=== PATIENT | female | born 1950 | race Caucasian/White ===

== ENCOUNTER 2023-08-06 07:00 | Outpatient (NON) | payer MEDICARE, OTHER, SELFPAY | END 2023-08-06 07:01 | disposition home or self-care (01) | LOC: ANHLAB 08-07 08:16 | PROVIDERS: PCP Internal Medicine; Visit Provider Internal Medicine Gastroenterology | DX: Z86.010 Personal history of colon polyps (principal) | CPT/HCPCS: 88305 ==

== ENCOUNTER 2023-08-06 08:21 | Day surgery (SDC) | payer MEDICARE, OTHER, SELFPAY ==
[2023-07-15 09:13] VITALS: BMI 32.6
[2023-07-20 14:16] VITALS: BMI 32.5
--- NOTE | 2023-08-06 09:17 | WPDANESEPPF ---
Anes - Initial Pre Proc Eval Procedure: Operation Date: 08/06/23 10:30 Proposed Procedures p Esophagogastroduodenoscopy - Hugh Hughes MD s Diagnostic Colonoscopy - Hugh Hughes MD Date/Time: 08/06/23 09:17 Surgeon: Hugh Hughes MD Pre Op Diagnosis: History of Colon Polyps, Nausea Patient Data Age: 72 Gender: F Height: 1.47 m Weight: 70.5 kg Allergies Allergy/AdvReac Type Severity Reaction Status Date / Time No Known Allergies Allergy Verified 08/06/23 09:17 Home Medications Medication Instructions Recorded Confirmed Type ascorbic acid (vitamin C) 500 mg 500 mg PO DAILY 07/20/23 08/06/23 History tablet calcium 600 mg capsule 600 mg PO DAILY 07/20/23 08/06/23 History cetirizine 10 mg tablet (Zyrtec) 10 mg PO DAILY 07/20/23 08/06/23 History cholecalciferol (vitamin D3) 50 50 mcg PO DAILY 07/20/23 08/06/23 History mcg (2,000 unit) tablet citalopram 20 mg tablet 20 mg PO DAILY 07/20/23 08/06/23 History lisinopril 10 mg tablet 10 mg PO DAILY 07/20/23 08/06/23 History montelukast 10 mg tablet 10 mg PO DAILY 07/20/23 08/06/23 History multivitamin with minerals-folic 1 tablet PO DAILY 07/20/23 08/06/23 History acid 0.4 mg tablet rosuvastatin 20 mg tablet 20 mg PO DAILY 07/20/23 08/06/23 History turmeric 400 mg capsule 400 mg PO DAILY 07/20/23 08/06/23 History omeprazole 20 mg capsule,delayed 20 mg PO DAILY 07/21/23 08/06/23 History release Patient hx anesthesia problems: none Family hx anesthesia problems: none Results Review: All pre-operative results and documents have been reviewed as part of the pre-operative evaluation. [facility] Social History Social History Smoking status: Never smoker Alcohol intake: current Alcohol use details: rarely Substance use: never Substance use type: does not use Living arrangements: with family Spiritual care concerns: No Anes - Eval Final PreProcedure Day of Procedure 08/06/23 09:17 Patient weight: obese Heart: regular rate and rhythm Lungs: clear to auscultation Airway: Mallampati scale class II Neurological: alert and oriented Last oral intake: >/= 8 hours ASA classification: III Emergent: no Anesthetic plan: proceed Anesthesia type and monitoring: general GIVS and standard monitoring Results Review: All pre-operative results and documents have been reviewed as part of the pre-operative evaluation. Informed Consent: The patient's anesthetic plan and its attendant risks and benefits were discussed with the patient/family/POA. Questions were solicited and answers provided to the satisfaction of the patient/family/POA.
[2023-08-06 09:31] VITALS: BP 114/78; PULSE 88; RESP 16; TEMP 36.9; O2SAT 97; BMI 33.0
[2023-08-06] MEDS: LACTATED RINGERS 1,000 ML 150 ML IV CONT (09:42)
--- NOTE | 2023-08-06 10:11 | PM.HPGS ---
History of Present Illness History of Present Illness Consent: Risks, benefits, and alternatives have been discussed and questions answered. Patient agrees to proceed with procedure. Chief complaint: History of Colon Polyps, Nausea Narrative: Noel Barr is a 72 year old female referred for both colonoscopy and EGD. Reports a prior history of colon polyps. Her father has had colon polyps. Her sister had colon cancer, her aunt had colon cancer. Patient reports that her current weight appetite and bowel movements are normal. She read returns today for screening colonoscopy. 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 She received chemotherapy and did not have surgery. Patient recently has had some vague nausea and left upper quadrant discomfort. She is on treatment currently with acid suppression medications. Currently omeprazole 20mg p.o. daily. Because of her prior history an EGD for follow-up has been requested. There is no known family history of gastric cancer. Review of Systems Review of Systems: All systems reviewed & are unremarkable except as noted in HPI and below PMFSH Social History Social History Smoking status: Never smoker Alcohol intake: current Alcohol use details: rarely Substance use: never Substance use type: does not use Living arrangements: with family Spiritual care concerns: No Meds Home Medications and Allergies Home Medications Medication Instructions Recorded Confirmed Type ascorbic acid (vitamin C) 500 mg 500 mg PO DAILY 07/20/23 08/06/23 History tablet calcium 600 mg capsule 600 mg PO DAILY 07/20/23 08/06/23 History cetirizine 10 mg tablet (Zyrtec) 10 mg PO DAILY 07/20/23 08/06/23 History cholecalciferol (vitamin D3) 50 50 mcg PO DAILY 07/20/23 08/06/23 History mcg (2,000 unit) tablet citalopram 20 mg tablet 20 mg PO DAILY 07/20/23 08/06/23 History lisinopril 10 mg tablet 10 mg PO DAILY 07/20/23 08/06/23 History montelukast 10 mg tablet 10 mg PO DAILY 07/20/23 08/06/23 History multivitamin with minerals-folic 1 tablet PO DAILY 07/20/23 08/06/23 History acid 0.4 mg tablet rosuvastatin 20 mg tablet 20 mg PO DAILY 07/20/23 08/06/23 History turmeric 400 mg capsule 400 mg PO DAILY 07/20/23 08/06/23 History omeprazole 20 mg capsule,delayed 20 mg PO DAILY 07/21/23 08/06/23 History release Allergies Allergy/AdvReac Type Severity Reaction Status Date / Time No Known Allergies Allergy Verified 08/06/23 09:17 Vital Signs Vital Signs - 24 hr 08/06/23 09:31 Temperature 98.5 F Pulse Rate 88 Respiratory Rate 16 Blood Pressure 114/78 Pulse Oximetry 97 Oxygen Delivery Room Air Exam Narrative: Physical exam reveals patient to be alert. Vital signs stable. HEENT exam is unremarkable. Patient is anicteric. Lungs are clear to auscultation and to percussion. Heart is without murmur or extra sounds. Abdomen bowel sounds are present soft nontender with no organomegaly. Digital external rectal exam is normal. Assessment and Plan Assessment and plan (1) History of colon polyps: Code(s): Z86.010 - Personal history of colonic polyps Status: Acute Assessment and Plan: Patient has a distant history of colon polyps along with family history of colon cancer. Plan for surveillance colonoscopy at least every 5 years. (2) Family hx of colon cancer: Code(s): Z80.0 - Family history of malignant neoplasm of digestive organs Status: Acute Assessment and Plan: Patient's sister has had colon cancer. Patient's father and herself have had colon polyps. Plan for surveillance colonoscopy at least every 5 years. (3) Nausea: Code(s): R11.0 - Nausea Status: Acute Assessment and Plan: Patient with some nausea poorly responsive to omeprazole plan for EGD to assess more thoroughly. (4) History of lymphoma: Cod
[2023-08-06 11:25] VITALS: BP 110/78; PULSE 78; RESP 14; O2SAT 99
--- NOTE | 2023-08-06 11:35 | WPDANESPN ---
Anes - Prog Note Post-Op Date/Time: 08/06/23 11:35 Cardiovascular status: normal Respiratory status: normal Airway patency: baseline Mental status: baseline Post-Op hydration status: normal Vital Signs: Last Vital Signs Temp 36.9 C 08/06/23 09:31 Pulse 78 08/06/23 11:25 Resp 14 08/06/23 11:25 BP 110/78 08/06/23 11:25 Pulse Ox 99 08/06/23 11:25 O2 Del Method Room Air 08/06/23 11:25 Pain Score (VAS): 0 I/O: Intake & Output 08/05/23 08/06/23 08/06/23 23:59 07:59 15:59 Intake Total 700 Balance 700 Patient Feedback: Patient satisfied with anesthetic care.
[2023-08-06 11:46] VITALS: BP 127/69; PULSE 66; RESP 16; O2SAT 99
== END 2023-08-06 11:50 | disposition home or self-care (01) ==
PROVIDERS: PCP Internal Medicine; Visit Provider Internal Medicine Gastroenterology
PROC: 0DJ08ZZ Inspection of Upper Intestinal Tract, Via Natural or Artificial Opening Endoscopic (ICD-10-PCS; CPT 43235; principal; 2023-08-06 10:30)
PROC: 0DJD8ZZ Inspection of Lower Intestinal Tract, Via Natural or Artificial Opening Endoscopic (ICD-10-PCS; CPT 45378; 2023-08-06 10:30)
DX: Z86.010 Personal history of colon polyps (principal); Z80.0 Family history of malignant neoplasm of digestive organs; R11.0 Nausea; K57.30 Diverticulosis of large intestine without perforation or abscess without bleeding; K64.8 Other hemorrhoids; K31.7 Polyp of stomach and duodenum
CPT/HCPCS: G0105; 43251; 43239

== ENCOUNTER 2023-09-10 08:02 | Outpatient (CLI) | payer MEDICARE, OTHER, SELFPAY ==
--- NOTE | ~2023-09-10 | CT_ITS ---
Pre and postcontrast Head CT History: Dizziness Technique: Axial imaging of the brain was performed prior to and following intravenous administratio n of 100 cc of Omnipaque 350 contrast material.. Dose reduction technique was used on this scan by ut ilizing automated exposure control and iterative reconstruction technique. The dose-length product (D LP) was 1210.67 mGy-cm. Findings: There is no evidence of intracranial hemorrhage, mass lesion, or acute infarct. Mild hypod ense areas are present in the periventricular white matter, compatible mild chronic microvascular isc hemic changes.. The ventricles and subarachnoid spaces are normal in size. The calvarium appears no rmal. The visualized paranasal sinuses and mastoid air cells are clear. No abnormal postcontrast enhancement. Impression: Mild chronic microvascular ischemic changes, otherwise unremarkable exam. Reviewed, dictated and finalized at [facility]. Impression: Mild chronic microvascular ischemic changes, otherwise unremarkable exam.
[2023-09-10 08:23] LABS: Estimated Glomerular Filt Rate > 60
== END 2023-09-10 08:03 | disposition home or self-care (01) ==
PROVIDERS: PCP Internal Medicine; Visit Provider Internal Medicine
DX: I67.82 Cerebral ischemia (principal)
CPT/HCPCS: 70470; Q9967

== ENCOUNTER 2023-09-23 13:22 | Outpatient (CLI) | payer MEDICARE, OTHER, SELFPAY ==
--- NOTE | ~2023-09-23 | US_ITS ---
EXAMINATION: US carotid duplex BI DATE: 09/23/2023 14:22 INDICATION: Dizziness. TECHNIQUE: Grayscale, color Doppler, and pulsed Doppler images of the cervical carotid arteries were obtained. The degree of vessel stenosis is placed in one of the following categories: normal, <50%, 5 0-69%, >=70% but less than near-occlusion, near-occlusion, or total occlusion. Note that percent sten osis relative to normal distal artery lumen diameter is indirectly measured from velocity measurement s as described by Abram, et al. Radiology 2003; [id number]. COMPARISON: None. FINDINGS: In the left thyroid lobe, there is a 1.3 cm mixed cystic and solid, isoechoic, wider than t all nodule with ill defined margin without echogenic foci (TI-RADS TR2), likely not clinically signif icant. RIGHT: The right common carotid artery (CCA) peak systolic velocity (PSV) is 70 cm/s. The right internal car otid artery (ICA) PSV is 102 cm/s. The right ICA end-diastolic velocity (EDV) is 47 cm/s. The right I CA/CCA PSV ratio is 1.5. Grayscale and color Doppler images yield an estimate of <50% diameter reduct ion from plaque in the ICA. There is antegrade flow in the right vertebral artery. LEFT: The left CCA PSV is 63 cm/s. The left ICA PSV is 145 cm/s. The left ICA EDV is 52 cm/s. The left ICA/ CCA PSV ratio is 2.3. Grayscale and color Doppler images yield an estimate of <50% diameter reduction from plaque in the ICA. There is antegrade flow in the left vertebral artery. IMPRESSION: 1. <50% stenosis in the right internal carotid artery. 2. <50% stenosis in the left internal carotid artery. Reviewed, dictated and finalized at location [facility].
== END 2023-09-23 13:23 | disposition home or self-care (01) ==
LOC: ANHIMG 13:23
PROVIDERS: PCP Internal Medicine; Visit Provider Internal Medicine
DX: I65.23 Occlusion and stenosis of bilateral carotid arteries (principal); R42 Dizziness and giddiness
CPT/HCPCS: 93880

== ENCOUNTER 2024-03-07 08:49 | Outpatient (CLI) | payer MEDICARE, OTHER, SELFPAY ==
[2024-03-07 09:17] LABS: Basophils Percent Auto 0.6 % (0.2-1.2); Eosinophils Absolute Auto 0.2 K/mm3 (0-0.3); Eosinophils Percent Auto 3.3 % (0-4.4); Hematocrit 40.4 % (37.0-47.0); Hemoglobin 13.3 g/dL (12.0-15.0); Immature Granulocyte Absolute 0.02 K/mm3 (0.00-0.031); Immature Granulocyte Percent A 0.3 % (0-0.5); Lymphocytes Absolute Auto 1.74 K/mm3 (0.9-3.2); Lymphocytes Percent Auto 25.9 % (18.3-44.2); Mean Corpuscular HGB Conc 32.9 g/dl (32-36); Mean Corpuscular Hemoglobin 29.3 pg (26-34); Mean Platelet Volume 8.9 fl (7.4-10.4); Monocytes Absolute Auto 0.6 K/mm3 (0.1-0.6); Monocytes Percent Auto 9.2 % (2.6-8.5); Neutrophils Absolute Auto 4.1 K/mm3 (1.3-6.7); Neutrophils Percent Auto 60.7 % (45.5-73.1); Platelet Count Result 237 k/mm3 (150-375); Red Blood Count 4.54 M/mm3 (4.2-5.4); Red Cell Distribution Width 14.5 % (11.5-14.5); White Blood Count 6.7 K/mm3 (4.5-10.0)
[2024-03-07 12:05] LABS: Alanine Aminotransferase 17 U/L (6-35); Albumin Level 4.1 g/dL (3.5-5.1); Alkaline Phosphatase 74 U/L (38-126); Anion Gap 7 mmol/L (4-12); Aspartate Amino Transferase 59 U/L (14-36); Bilirubin,Total 0.3 mg/dL (0.2-1.3); Blood Urea Nitrogen 13 mg/dL (7-17); Calcium 9.8 mg/dL (8.4-10.2); Carbon Dioxide 28 mmol/L (22-30); Chloride 104 mmol/L (98-107); Cholesterol 202 mg/dL (0-200); Estimated Glomerular Filt Rate > 60; Glucose 102 mg/dL (65-110); HDL Direct 66 mg/dL; Potassium 4.2 mmol/L (3.4-5.0); Sodium 139 mmol/L (137-145); Triglycerides 167 mg/dL (<150)
[2024-03-07 12:16] LABS: LDL Cholesterol Direct 105 mg/dL
[2024-03-07 13:12] LABS: Vitamin D 25 Hydroxy 72.9 ng/mL
== END 2024-03-07 08:50 | disposition home or self-care (01) ==
PROVIDERS: PCP Internal Medicine; Visit Provider Internal Medicine
DX: E55.9 Vitamin D deficiency, unspecified (principal); I10 Essential (primary) hypertension
CPT/HCPCS: 36415; 80053; 80061; 82306; 85025

== ENCOUNTER 2024-09-06 09:46 | Outpatient (CLI) | payer MEDICARE, OTHER, SELFPAY ==
[2024-09-06 10:16] LABS: Alanine Aminotransferase 20 U/L (6-35); Albumin Level 4.3 g/dL (3.5-5.1); Alkaline Phosphatase 70 U/L (38-126); Anion Gap 6 mmol/L (4-12); Aspartate Amino Transferase 68 U/L (14-36); Basophils Absolute Auto 0.1 K/mm3 (0.0-0.1); Bilirubin,Total 0.4 mg/dL (0.2-1.3); Blood Urea Nitrogen 15 mg/dL (7-17); Calcium 9.4 mg/dL (8.4-10.2); Carbon Dioxide 29 mmol/L (22-30); Chloride 106 mmol/L (98-107); Cholesterol 203 mg/dL (0-200); Eosinophils Absolute Auto 0.2 K/mm3 (0-0.3); Eosinophils Percent Auto 2.8 % (0-4.4); Estimated Glomerular Filt Rate > 60; Glucose 100 mg/dL (65-110); HDL Direct 63 mg/dL; Hematocrit 42.3 % (37.0-47.0); Hemoglobin 13.7 g/dL (12.0-15.0); Immature Granulocyte Absolute 0.01 K/mm3 (0.00-0.031); Immature Granulocyte Percent A 0.2 % (0-0.5); Lymphocytes Absolute Auto 1.84 K/mm3 (0.9-3.2); Lymphocytes Percent Auto 29.8 % (18.3-44.2); Mean Corpuscular HGB Conc 32.4 g/dl (32-36); Mean Corpuscular Volume 89.6 fl (80-100); Mean Platelet Volume 9.2 fl (7.4-10.4); Monocytes Absolute Auto 0.6 K/mm3 (0.1-0.6); Monocytes Percent Auto 8.9 % (2.6-8.5); Neutrophils Absolute Auto 3.6 K/mm3 (1.3-6.7); Neutrophils Percent Auto 57.3 % (45.5-73.1); Platelet Count Result 274 k/mm3 (150-375); Potassium 4.4 mmol/L (3.4-5.0); Red Blood Count 4.72 M/mm3 (4.2-5.4); Red Cell Distribution Width 14.2 % (11.5-14.5); Sodium 141 mmol/L (137-145); Triglycerides 132 mg/dL (<150); White Blood Count 6.2 K/mm3 (4.5-10.0)
[2024-09-06 10:27] LABS: LDL Cholesterol Direct 107 mg/dL
== END 2024-09-06 09:47 | disposition home or self-care (01) ==
LOC: ANHLAB 09:47
PROVIDERS: PCP Internal Medicine; Visit Provider Internal Medicine
DX: I10 Essential (primary) hypertension (principal)
CPT/HCPCS: 36415; 80053; 80061; 85025

== ENCOUNTER 2024-10-19 11:37 | Outpatient (CLI) | payer MEDICARE, OTHER, SELFPAY ==
--- NOTE | ~2024-10-19 | CT_ITS ---
EXAMINATION: CTA chest PE protocol DATE: 10/19/2024 12:42 CDT INDICATION: Shortness of breath TECHNIQUE: Computed tomographic angiography (CTA) of the chest was performed with 100 mL Omnipaque-35 0 intravenous contrast. The dose-length product was 404.87 mGy-cm. Maximum intensity projection 3D-re constructions of the aorta and other arteries were constructed by the technologist on a separate work station. COMPARISON: None. FINDINGS/OBSERVATIONS: PULMONARY ARTERIES: No filling defect is identified within the main or proximal pulmonary artery. The main pulmonary artery is not enlarged. THORACIC AORTA: No aneurysmal dilatation or dissection is present. The great vessels are intact LUNGS: Trace bibasilar atelectasis. Cylindrical bronchiectasis is also noted. The remainder of the lungs are clear. MEDIASTINUM: No morphologically suspicious or pathologically enlarged lymph nodes are identified with in the mediastinum or bilateral axilla. BONES OF THE CHEST: No acute fracture. Age-appropriate degenerative disease. No lytic or blastic lesions. HEART: The heart is within upper limits of normal for size, without pericardial effusion. IMPRESSION: No pulmonary embolus. No thoracic aortic dissection. Trace bibasilar atelectasis with cylindrical bronchiectasis. Reviewed, dictated and finalized at location A.
--- OUTSIDE RECORDS SUMMARY | 2024-10-19 11:44 | XMS_ITS | Data Portability ---
Author Organization [facility] Address [address] [place] [address] Care Team Providers Care Angiography Technologist Name Role Phone DANIA ROSA Primary Care Provider [phone] Assessment Encounter Date Assessment Date Assessment LastModified by Organization Details LastModified Time 11/03/2023 11/03/2023 we will continue current therapy. [email or web address] Not available 11/08/2023 12:59:16 12/07/2023 12/07/2023 wellness screenings in checklist discussed and screenings and immunizations set up where patient agreeable and appropriate for the patient [email or web address] Not available 12/12/2023 13:46:57 02/29/2024 02/29/2024 we will get a flu shot today blood work for biochemical management of disease processes and medications on down her mammogram colon cancer screening and immunizations from her old records. Staff will do that blood work ordered medicines reviewed with patient diagnosis and assessment and plans reviewed with the patient follow up with me in 4 months Not available 03/05/2024 15:43:47 08/08/2024 08/08/2024 Continue current therapy seems to be doing well a CBC CMP and a lipid see me in 6 months [email or web address] Not available 08/21/2024 21:14:56 Plan of Treatment Reminders Order Date Submit Date Provider Last Modified By Organization Details Last Modified Time Details Appointments ANY 15 2024 10:45A Kyle Rosa MD Not available Not available Not available ANY 15 2024 01:00P Kyle Rosa MD Not available Not available Not available Lab CBC w/ auto diff 2024 025 JOYCE [facility], [address], [place], [address], 09/06/2024 13:25:06 CMP, serum or plasma 2024 025 [facility], [address], [place], [address], 09/06/2024 13:25:05 lipid panel, serum 2024 025 [facility], [address], [place], [address], 09/06/2024 13:25:06 lipid panel, serum 2023 024 [facility], [address], [place], [address], 03/07/2024 15:49:26 CMP, serum or plasma 2023 024 [facility], [address], [place], [address], 03/07/2024 15:49:26 CBC w/ auto diff 2023 024 [facility], [address], [place], [address], 03/07/2024 12:40:19 vitamin D, 25-hydro xy, total, serum 2023 024 [facility], [address], [place], [address], 03/07/2024 15:49:26 Referral None recorded . Procedures None recorded . Surgeries None recorded . Imaging None recorded . Medication Orders None recorded . Patient TargetsNo targets recorded. Patient Instructions Encounter Date Encounter Id Patient Instructions Last Modified By Organization Details Last Modified Time 11/03/2023 [id number] A healthy lifestyle: care instructions [email or web address] Not available 11/08/2023 13:00:24 12/07/2023 [id number] preventing falls : care instructions Not available 12/07/2023 17:40:58 Medicare [place] Preventive Checklist [email or web address] Not available 12/07/2023 17:40:58 eating healthy foods: care instructions Not available 12/07/2023 17:40:58 08/08/2024 [id number] A healthy lifestyle: care instructions [email or web address] Not available 08/08/2024 17:51:29 Reason for Referral None Reported. Results Created Date Observation Date Name Description Value Unit Range Abnormal Flag Note LastModifiedBy Organization Detail LastModifiedTime 12/04/19 24 03/11/2023 MAMMO , scree antonette, tomos ynthe sis, bilat eral No observ ation record ed. Not Available 2023 11:17:19 12/07/19 24 08/06/2023 upper endos copy proce dure (EGD) (PROC ) No observ ation record ed. [facility] (Medical Records) [address] [place] [address], [address], 12/08/2023 12:30:36 12/08/19 colon oscop y proce dure (PROC ) No observ ation record ed. [facility] (Medical Records) [address] [place] [address], [address], 12/08/2023 12:30:36 12/09/19 24 12/03/2021 bone densi ty No observ ation record ed. [facility] [address] [place], [address], 12/16/2023 12:59:50 12/24/19 24 12/23/2023 CT, coron hali calci um score No observ ation record ed. [facility] [address], [place], [address], 12/30/2023 13:51:32 04/01/20 24 04/01/2024 MAMMO , scree antonette, digit al, bilat eral No observ ation record ed. [facility] [address], [place], [address], 04/06/2024 09:58:28 Result Notes None recorded. Problems Name Problem SNOMED Code Status Onset Date Resolution Date Notes Provider Name and Address Organization Details Recorded Time Essential hypertension 07710729 Active 2023 Major Solares MA null, [place] - [facility] 4 16:47:15 Nausea 980653693 Active 2023 Major Solares [place], [place] [facility] 4 16:47:26 History of polyp of colon 007185873 Active 2023 Major Solares [place], [place] [facility] 4 16:48:26 Hyperlipidemia 96089218 Active 2023 Dania Rosa MD Attn: [facility],[address] [place], [address], [place] - [facility] 4 21:12:08 Chronic rhinitis 55563857 Active 2023 Dania Rosa MD Attn: [facility],[address] [place], [address], [place] [facility] 4 21:12:09 Vitamin D below reference range 931392669 Active 2023 Dania Rosa MD Attn: [facility],[address] [place], [address], [place] [facility] 4 21:12:10 Anxiety 78479301 Active 2023 Dania Rosa MD Attn: [facility] [facility], [place], [address], [place] [facility] 4 21:12:11 Dizziness 254415498 Active 2023 Major Solares [place] null, [place] [facility] 4 12:27:05 Gastroesophage al reflux disease without esophagitis 429404502 Active 2023 Dania Rosa MD Attn: [facility],[address] [facility] [place], [address], [facility] 4 15:43:07 Dyspnea 813055142 Active 2024 DAR Ding, [facility] 5 12:08:06 Problem Notes None recorded. Procedures Surgical History Date Name Laterality Status Provider Name and Address Organization Details Recorded Time Carpal tunnel surgery completed [facility] 12/07/2023 16:39:18 arthroplasty of joint of the thumb completed [facility] 12/07/2023 16:39:40 procedure on pancreas completed [facility] 12/07/2023 16:39:56 Imaging Results None recorded. Procedure Notes None recorded. Medical Equipment None Reported. Allergies No known drug allergies Medications Name Sig Start Date Stop Date Status Note LastModified by Organization Details LastModified Time citalopram 40 mg tablet Take 0.5 tablet(s) every day by oral route. 01/26 completed pt req 20mg tabs Not Available Not Available Not Available cetirizine 10 mg tablet TAKE 1 TABLET BY MOUTH EVERY DAY 2024 active Not Available Not Available Not Avai lable prednisone 20 mg tablet Take 2 tablets every day by oral route for 5 days. 2024 active Not Available Not Available Not Avai lable citalopram 20 mg tablet TAKE 1 TABLET BY MOUTH EVERY DAY 2024 active Not Available Not Available Not Avai lable lisinopril 10 mg tablet TAKE 1 TABLET BY MOUTH EVERY DAY 2024 active Not Available Not Available Not Avai lable Valtrex 1 gram tablet Take 1 tablet 3 times a day by oral route for 7 days. 11/02 completed Not Available Not Available Not Available omeprazole 20 mg capsule,del ayed release TAKE 1 CAPSULE BY MOUTH EVERY DAY 2024 active Not Available Not Available Not Avai lable montelukast 10 mg tablet TAKE 1 TABLET BY MOUTH EVERY DAY 2024 active Not Available Not Available Not Avai lable ergocalcife rol (vitamin D2) 1,250 mcg (50,000 unit) capsule TAKE 1 CAPSULE BY MOUTH ONE TIME PER WEEK 10/19 completed Not Available Not Available Not Available albuterol sulfate HFA 90 mcg/actuati on aerosol inhaler Inhale 2 puffs every 4 hours by inhalatio n route. 2024 active Not Available Not Available Not Avai lable doxycycline hyclate 100 mg tablet Take 1 tablet twice a day by oral route for 10 days. 2024 active Not Available Not Available Not Avai lable rosuvastati n 20 mg tablet TAKE 1 TABLET BY MOUTH EVERY DAY 2024 active Not Available Not Available Not Avai lable Prilosec OTC 20 mg tablet,oscar yed release take 1 tablet by mouth daily 08/08 completed Not Available Not Available Not Available Vitals Date Recorded Body height Body mass index (BMI) Body weight Heart rate Oxygen saturation Oxygen saturation in Arterial blood by Pulse oximetry Systolic blood pressure Diastolic blood pressure Provider Name and Address Organization Details Last Updated DateTime 5 149.86 cm 31.2 kg/m2 02745.7 4 g 79 /min 97 % 97 % 116 mm[Hg] 82 mm[Hg] [facility] 5 14:13:19 Date Recorded Body height Body mass index (BMI) Body weight Heart rate Oxygen saturation Oxygen saturation in Arterial blood by Pulse oximetry Systolic blood pressure Diastolic blood pressure Provider Name and Address Organization Details Last Updated DateTime 5 149.86 cm 32.4 kg/m2 28598.5 8 g 95 /min 93 % 93 % 120 mm[Hg] 82 mm[Hg] [facility] 5 11:39:45 Date Recorded Body height Body mass index (BMI) Body weight Heart rate Oxygen saturation Oxygen saturation in Arterial blood by Pulse oximetry Systolic blood pressure Diastolic blood pressure Provider Name and Address Organization Details Last Updated DateTime 4 149.86 cm 31.7 kg/m2 06443 g 94 /min 96 % 96 % 116 mm[Hg] 78 mm[Hg] Kendra Javed MA [place] - [facility] 4 15:20:20 Date Recorded Body height Body mass index (BMI) Body weight Heart rate Oxygen saturation Oxygen saturation in Arterial blood by Pulse oximetry Systolic blood pressure Diastolic blood pressure Provider Name and Address Organization Details Last Updated DateTime 4 149.86 cm 31.9 kg/m2 41166.5 9 g 87 /min 94 % 94 % 128 mm[Hg] 68 mm[Hg] Hui Anita [facility] 4 15:10:03 Date Recorded Body height Body mass index (BMI) Body weight Heart rate Oxygen saturation Oxygen saturation in Arterial blood by Pulse oximetry Systolic blood pressure Diastolic blood pressure Provider Name and Address Organization Details Last Updated DateTime 4 149.86 cm 30.3 kg/m2 58575.2 1 g 83 /min 95 % 95 % 122 mm[Hg] 66 mm[Hg] Martha Duque MA [facility] 4 15:03:15 Social History Question Answer Notes LastModified by Organizat ion Details LastModified Time Tobacco Smoking Status Former Smoker quit when she was 27 years old Kendra Javed MA Merged with [facility] 11/03/2023 15:14:53 Do You Have An Advance Directive? Yes Information not available 11/03/2023 Are You Blind Or Do You Have Difficulty Seeing? No Information not available 11/03/2023 What Is Your Level Of Caffeine Consumption? Moderate Information not available 11/03/2023 In The 14 Days Before Symptom Onset, Have You Had Close Contact With A Laboratory-confir med COVID-19 While That Case Was Ill? No Information not available 02/29/2024 In The 14 Days Before Symptom Onset, Have You Had Close Contact With A Person Who Is Under Investigation For COVID-19 While That Person Was Ill? No Information not available 02/29/2024 Have You Been To An Area Known To Be High Risk For COVID-19? No Information not available 02/29/2024 Are You Deaf Or Do You Have Serious Difficulty Hearing? Yes Hearing Aids Information not available 12/07/2023 What Type Of Diet Are You Following? REGULAR Information not available 12/07/2023 What Is The Highest Grade Or Level Of School You Have Completed Or The Highest Degree You Have Received? [id number] Information not available 12/07/2023 Are There Any Guns Present In Your Home? No Information not available 12/07/2023 In The Past 7 Days, How Much Pain Have You Gro[place]? None Information not available 12/07/2023 In General, Would You Say You Health Is: Very Good Information not available 12/07/2023 How Would You Describe The Condition Of Your Mouth And Teeth- Including False Teeth Or Dentures? Very Good Information not available 12/07/2023 Each Night, How Many Hours Of Sleep Do You Get? 6 Information no t available 12/07/2023 Has Anyone Ever Told You That You Snore? Yes Information not available 12/07/2023 In The Past 7 Days, How Often Have You Groton Sleepy In The Daytime? Usually Information not available 12/07/2023 # Alcohol Drinks Per Week 0 Information not available 12/07/2023 What Was The Date Of Your Most Recent Tobacco Screening? 10/19/2024 Information not available 10/19/2024 What Is Your Relationship Status? Single Information not available 11/03/2023 Do You Use Your Seat Belt Or Car Seat Routinely? Yes Information not available 11/03/2023 Do You Have Smoke And Carbon Monoxide Detectors In Your Home? Yes Information not available 11/03/2023 How Much Tobacco Do You Smoke? 0.5 PPD Information not available 11/03/2023 Do You Use Sunscreen Routinely? Yes Information not available 12/07/2023 Has Tobacco Cessation Counseling Been Provided? Yes Information not available 08/08/2024 On What Date Was Tobacco Cessation Counseling Provided? 10/19/2024 Information not available 10/19/2024 Sex: Female Functional Status Question Answer Note LastModified by Organizat ion Details LastModified Time Do you use any illicit or recreational drugs? No Information not available 11/03/2023 Do you or have you ever used any other forms of tobacco or nicotine? No Information not available 11/03/2023 What is your level of alcohol consumption? Occasional socially Information not available 12/07/2023 Are you currently employed? No retired Information not available 11/03/2023 Are you able to care for yourself? Yes Information not available 11/03/2023 What is your exercise level? Occasional Information not available 12/07/2023 Mental Status Question Answer Note LastModified by Organization D etails LastModified Time Do you feel stressed (tense, restless, nervous, or anxious, or unable to sleep at night)? [id number] Information not available 12/07/2023 Family History Relationship Description Onset Age of this Age Resolved Age Notes LastModified by Organization Details LastModified Time Mother Asthma [email or web address] Not availabl e 07/09/2023 15:07:17 Sister Malignant tumor of breast [email or web address] Not available 06/19 15:08:27 Sister Malignant tumor of colon [email or web address] Not available 06/19 15:08:52 Father Heart disease [email or web address] Not available 06/19 15:09:02 Father Hypertensive disorder [email or web address] Not available 06/19 15:09:09 Father Hypercholest erolemia [email or web address] Not available 06/19 15:09:20 Father Malignant neoplasm of prostate [email or web address] Not available 06/19 15:09:27 Medical History Condition Response Coronary Artery Disease N Other Y Atrial Fibrillation N High Blood Pressure Y Thyroid Problems N Kidney or Bladder Problems N Depression Y COPD N Blood Clots N GI Problems Y Have you had a mammogram in the last yea r? Y Skin Problems N Anemia N Heart Attack ([place]) N Diabetes N Anxiety Disorder Y Muscle, Joint, or Bone Problems Y Seizures/Epilepsy N Have you had a colonoscopy in the last 1 0 years? Y Acid Reflux (GERD) Y Cancer Y Stroke N Allergies Y Asthma N Have you had a PSA blood test in the las t year? N High Cholesterol Y Hepatitis N Liver Disease N Headaches Y Osteoporosis Y Heart Failure N Gynecological History Statement/Question Response If Post Menopausal, Age at Menopause 41 Obstetrics History GPAL:G 0 P 0 0 0 0 Immunizations Vaccine Type Date Status Note Provider Nam e and Address Organization Details Recorded Time Influenza, split virus, quadrivalent, preservative 7 completed Hui henderson, [place] - [facility] 10/29/2023 14:00:14 Influenza, high-dose, quadrivalent, PF 4 completed Hui Wyckoff [place], [place] [facility] 10/29/2023 14:00:14 Influenza, high-dose, quadrivalent, PF 2 completed Hui [place] [facility] 10/29/2023 14:00:14 COVID-19, mRNA, LNP-S, PF, 30 mcg/0.3 mL dose 1 completed Hui [place] [facility] 10/29/2023 14:00:14 COVID-19, mRNA, LNP-S, PF, 30 mcg/0.3 mL dose 1 completed Hui [place] [facility] 10/29/2023 14:00:14 COVID-19, mRNA, LNP-S, PF, 30 mcg/0.3 mL dose 1 completed Hui [place] [facility] 10/29/2023 14:00:14 COVID-19, mRNA, LNP-S, PF, 30 mcg/0.3 mL dose 1 completed Hui [place] [facility] 10/29/2023 14:00:14 COVID-19, mRNA, LNP-S, PF, 30 mcg/0.3 mL dose 1 completed H[place] [facility] 10/29/2023 14:00:14 Tdap 5 completed H[place] [facility] 10/29/2023 14:00:14 Influenza, high-dose, trivalent, PF 8 completed [place] [facility] 10/29/2023 14:00:14 Influenza, split virus, trivalent, preservative 0 completed Hui [place] [facility] 10/29/2023 14:00:14 Influenza, high-dose, trivalent, PF 4 completed Dania Rosa MD Attn: [facility] [place], [address], [facility] 03/05/2024 15:42:20 Pneumococcal conjugate PCV20, polysaccharide AUF393 conjugate, adjuvant, PF 5 completed DAR Soto, [place] - [facility] 08/08/2024 16:56:04 Past Encounters Encounter ID Performer Location Encounter Start Date Encounter Closed Date Diagnosis/Indication Diagnosis SNOMED-CT Code Diagnosis ICD10 Code Diagnosis Note [id number] Dania Rosa MD [facility] (Adult Med) [address] [place] [phone] 07/09/2023 14:34:43 07/09/2023 16:50:15 Nausea 696666272 R11.0 History of polyp of colon 173967394 Z86.010 Essential hypertension 31736673 I10 Anxiety 33556095 F41.9 Vitamin D below reference range 243000341 E55.9 Chronic rhinitis 7024797 6 J31.0 Hyperlipidemia 91381989 E78.5 [id number] Dania Rosa MD [facility] [place] [address] [place] [address] 08/24/2023 11:11:02 08/24/2023 12:33:46 Dizziness 922126653 R42 Essential hypertension 90531462 I10 Anxiety 27892567 F41.9 [id number] Dania Rosa MD [facility] (Adult Med) [address] [place] [id number] 11/03/2023 15:05:20 11/03/2023 15:48:33 Obesity 936876512 E66.8 Chronic rhinitis 5026450 6 J31.0 Essential hypertension 04982145 I10 Hyperlipidemia 47853114 E78.5 [id number] Dania Rosa MD [facility] [place] [address] [place] [address] 12/07/2023 14:13:26 12/07/2023 15:52:47 Adult health examination 175619448 Z00.00 Health Risk Assessment collected and reviewed [id number] Dania Rosa MD [facility] [place] [address] [place] [address] 02/29/2024 14:36:41 02/29/2024 15:56:59 Administration of influenza vaccine 63367451 Z23 Essential hypertension 70629089 I10 Hyperlipidemia 04026356 E78.5 Vitamin D below reference range 897531392 E55.9 Gastroesop hageal reflux disease without esophagitis 750902998 K21.9 Anxiety 21438395 F41.9 [id number] Dania Rosa MD [facility] [place] [address] [place] [address] 08/08/2024 13:47:03 08/08/2024 14:42:50 Body mass index 30+ - obesity 992889896 Z68.31 Overweight 222393166 E66 .3 Requires v accination against Streptococcus pneumoniae 0372004525 Z23 Essential hypertension 93851091 I10 Gastroesop hageal reflux disease without esophagitis 765129210 K21.9 Hyperlipidemia 77116174 E78.5 Anxiety 26028059 F41.9 [id number] Dania Rosa MD [facility] ([facility]) [address] [place] [address] 10/19/2024 11:26:00 10/19/2024 12:15:51 Body mass index 30+ - obesity 055400156 Z68.32 Obese class I 8696540686 13948 E66.811 Dyspnea 865143235 R06.02 Health Concerns Section Related Observation LastModified by Organization Detai ls LastModified Time None Recorded Concern Status LastModified by Organization Details LastModified Time None Recorded Advance Directives Directive Y: Payers Insurance Date Sequence Insurance Name Policy Number Policy Jones Covered Member ID Jones Member ID Guarantor Name 10/19/2024 [place] F L Forister [id number] Noel Burnham Forister 10/19/2024 1 [place] F L Forister [id number] Noel Burnham Forister 10/19/2024 2 [employer] (MEDICARE SUPPLEMENT) Liliya Burnham Forraquel [id number] Noel Burnham Forraquel Notes Date Note Type Note Provider Name and Address Organization Details Recorded Time 11/03/2023 text/html rhinitis better hypertension no headache hyperlipidemia trying to follow a low-fat diet getting upper and lower endoscopies Dania Rosa MD Attn: [employer],[address], [place], [address], [facility] 11/08/2023 13:00:27 12/07/2023 text/html MAW 2Reported bypatient.Diet and Nutrition:discussed diet improvement Fracture Risk:no sudden unexplained fractures;history of fractures Concentration and Memory:no decreased concentrating ability; no memory lapses or loss; does not forget words Speech/Motor difficulties:no speech difficulties; no difficulty expressing formulated concepts; no difficulty with fine manipulative tasks; no difficulty writing/copying; no slowed reaction time; does not knock things over when trying to pick them up Hearing:loss of hearing: in both ears; wears hearing aids Vision:no vision problems Activities of Daily Living:able to bathe with limited or no assistance; able to contol urination and bowels; able to dress with limited or no assistance; able to feed self with limited or no assistance; able to get out of chair or bed with limited or no assistance; able to groom with limited or no assistance; able to toilet with limited or no assistance Instrumental Activities of Daily Living:able to do house work with limited or no assistance; able to grocery shop with limited or no assistance; able to manage medications with limited or no assistance; able to manage money with limited or no assistance; able to prepare meals with limited or no assistance; able to use the phone with limited or no assistance Falls Risk Assessment:no frequent falls while walking; no fall since last visit; no dizziness/vertigo; fall(s) in the past year 1 Home Safety:reviewed sun protection; no unsafe gabe hazzards; no unsafe stairs; working smoke/CO detectors; practicing 'safer sex'; no fire arms; good lighting in the home;does not have hand bars in the bathroom/shower Dania Rosa MD Attn: [employer],[address], [place], [address], [facility] 12/12/2023 13:47:12 02/29/2024 text/html rhinitis stable on her montelukast. Hypertension no headache or dizzy. Hyperlipidemia taking medications walking trying to follow a low-fat diet. GERD no nausea no vomiting or heartburn. Low vitamin-D level needs to be checked anxiety doing good on citalopram with no side effects Dania Rosa MD Attn: Accounting,[address] , [place], [address], [facility] 03/05/2024 15:44:18 08/08/2024 text/html rhinitis stable on her montelukast. Hypertension no headache or dizzy. Hyperlipidemia taking medications walking trying to follow a low-fat diet. GERD no nausea no vomiting or heartburn. Anxiety stable Dania Rosa MD Attn: Accounting,[address] , [place], [address], [facility] 08/21/2024 21:15:21 OBGyn Episode No OBEpisode recorded.
--- OUTSIDE RECORDS SUMMARY | 2024-10-19 11:44 | XMS_ITS | Data Portability ---
Author Organization [place] [facility] [employer], Main Office Address [address] [place] [address] Care Team Providers Care Preparation Center Coordinator Name Role Phone DANIA ROSA Primary Care Provider DANIA ROSA Referring Provider [phone] NONE, NONE Referring Provider Unavailable Assessment Encounter Date Assessment Date Assessment LastModified by Organization Details LastModified Time 08/18/2022 08/18/2022 Wellness completed Blood work ordered Antibiotics for sinusitis Push fluids continue current therapy Diagnosis assessment plan discussed [email or web address] Not available 08/24/2022 12:33:10 02/23/2023 02/23/2023 Continue current therapy x-ray her left humerus does not want to pursue anything else about that right now will follow-up with me in 4 months continue current therapy diagnosis in the assessment and plan have been discussed Not available 02/23/2023 20:39:43 04/23/2023 04/23/2023 Ear drops Vestibular therapy Valium 5 mg 1/2 tablet p.o. b.i.d. x2 weeks for vestibular suppression Follow-up if not improved or call back sooner if symptoms worsen [email or web address] Not available 04/23/2023 16:57:56 Plan of Treatment Reminders Order Date Submit Date Provider Last Modified By Organization Details Last Modified Time Details Appointments None recorded. Lab vitamin D, 25-hydroxy, total, serum 2022 023 cyl [facility] (Lab), [address] [place], [address], 10:28:33 T3, free, serum or plasma 2022 023 [email or web address] [facility] (Lab), [address] [place], [address], 3 15:51:21 T4, free, serum [address] (Lab), [address] [place], [address], 3 15:51:21 TSH, serum or plasma [address] (Lab), [address] [place], [address], 3 15:51:21 CBC w/ auto diff [address] (Lab), [address] [place], [address], 3 15:51:21 lipid panel, serum 2022 023 [facility] (Lab), [address] [place], [address], 3 11:57:54 CMP, serum or plasma [address] (Lab), [address] [place], [address], 3 15:51:21 Referral vestibular therapy referral 2023 024 [email or web address] 25 [facility], [address], [place], [address], 4 12:29:54 Procedures None recorded. Surgeries None recorded. Imaging None recorded. Medication Orders Valium 5 mg tablet 2023 024 [id number], [address], [place], [address], 4 16:58:33 cefuroxime axetil 500 mg tablet 2022 023 [email or web address] [id number], [address], [place], [address], 15:09:31 Patient TargetsNo targets recorded. Patient Instructions Encounter Date Encounter Id Patient Instructions Last Modified By Organization Details Last Modified Time 08/18/2022 [id number] dementia rating scale-2* [email or web address] Not available 08/18/2022 15:51:21 alcohol misuse* [email or web address] Not available 08/18/2022 15:51:21 depression screening* Not available 08/18/2022 15:51:21 multi-dimensiona l health assessment questionnaire* [email or web address] Not available 08/18/2022 15:51:21 Personalized Hea lth Plan and Screening Recommendations Advance Directives - Do you have one? Yes Advance Directives - Do we have your advance directive on file in your health record? Patient declined. Primary Prevention/Interven tion (prevents or decreases the chance of common diseases from occurring) Smoking Risk: Non Smoker I have no recommendations. Alcohol Misuse Screening: Negative I have no recommendations. Weight: Overweight try to lose 5% of your body weight Physical activity: Appropriate physical activity Nutrition: Good Fall Risk (screened today): Intermediate Refer to attached handout Preventing Falls: After your Visit Vaccines Pneumococcal: No further needed Influenza: Your next one in the fall of this year Chronic Disease Risks Stroke: Intermediate Risk Continue current treatment plan Heart Attack: Intermediate Risk Continue current treatment plan Clogging of the Arteries: Intermediate Risk Continue current treatment plan Diabetes: Intermediate Risk Continue current treatment plan Secondary Prevention/Interven tion (detects treatable diseases before they may cause symptoms, disability, or ) Breast Cancer Screening with mammogram: Your next mammogram: 12/04/2022 Cervical/Uterine/Ov chris Cancer Screening: No screening necessary Osteoporosis Screening: Your next DEXA in: 12/05/2023 Date Screening Last Performed: 12/03/21 Colon Cancer Screening: Colonoscopy In: 07/29/2023 Date Screening Last Performed: 07/27/18 with repeat recommendation for 5 years Eye Disease Screening: Your next exam in: 07/2023 Dementia Risk: Low I have no recommendations Depression Screening: Negative Continue current treatment plan Not available 08/18/2022 11:18:20 Reason for Referral Vestibular Therapy Referral for Vertigo Referring Physician: Dania Rosa, Internal Medicine, Encounter Date: 04/23/2023 Results Created Date Observation Date Name Description Value Unit Range Abnormal Flag Note LastModifiedBy Organization Detail LastModifiedTime 12/04/19 22 12/03/2021 VITAM IN D 25-HY DROXY [id number] 74.6 NG/mL 30-100 Vitam in D Statu s: Defic ient: <20 ng/mL Insuf ficie nt: 20-29 ng/mL Suffi cient : 30-10 0 ng/mL Not Available [facility] (Lab) [address] [place], [address], 12/03/2021 17:06:11 08/19/19 23 08/18/2022 CBC/C OMPLE TE BLD COUNT W/DIF F white blood cells 8.1 x10'3 /uL 4.2-10 .8 Not Available [facility] (Lab) [address] [place], [address], 08/18/2022 13:49:39 08/19/19 23 08/18/2022 CBC/C OMPLE TE BLD COUNT W/DIF F red blood cells 4.64 x10'6 /uL 3.80-5 .20 Not Available [facility] (Lab) [address] [place], [address], 08/18/2022 13:49:39 08/19/19 23 08/18/2022 CBC/C OMPLE TE BLD COUNT W/DIF F hemoglobin 13.5 g/dL 12.0-1 5.6 Not Available [facility] (Lab) [address] [place], [address], 08/18/2022 13:49:39 08/19/19 23 08/18/2022 CBC/C OMPLE TE BLD COUNT W/DIF F hematocrit 42.0 % 35.7-4 5.7 Not Available [facility] (Lab) [address] [place], [address], 08/18/2022 13:49:39 08/19/19 23 08/18/2022 CBC/C OMPLE TE BLD COUNT W/DIF F mean red cell volume 90.5 fL 82.0-9 9.0 Not Available [facility] (Lab) [address] [place], [address], 08/18/2022 13:49:39 08/19/19 23 08/18/2022 CBC/C OMPLE TE BLD COUNT W/DIF F mean red cell hemoglobin 29.1 pg 27.0-3 3.0 Not Available [facility] (Lab) [address] [place], [address], 08/18/2022 13:49:39 08/19/19 23 08/18/2022 CBC/C OMPLE TE BLD COUNT W/DIF F mean RBC HGB concentratio n 32.1 g/dL 31.0-3 6.0 Not Available [facility] (Lab) [address] [place], [address], 08/18/2022 13:49:39 08/19/19 23 08/18/2022 CBC/C OMPLE TE BLD COUNT W/DIF F red cell distribution width 13.5 % 11.8-1 5.5 Not Available [facility] (Lab) [address] [place], [address], 08/18/2022 13:49:39 08/19/19 23 08/18/2022 CBC/C OMPLE TE BLD COUNT W/DIF F platelets 304 x10'3 /uL 150-40 0 Not Available [facility] (Lab) [address] [place], [address], 08/18/2022 13:49:39 08/19/19 23 08/18/2022 CBC/C OMPLE TE BLD COUNT W/DIF F mean platelet volume 9.7 fL 9.0-12 .4 Not Available [facility] (Lab) [address] [place], [address], 08/18/2022 13:49:39 08/19/19 23 08/18/2022 CBC/C OMPLE TE BLD COUNT W/DIF F neutrophils 70.5 % 39.0-7 2.0 Not Available [facility] (Lab) [address] [place], [address], 08/18/2022 13:49:39 08/19/19 23 08/18/2022 CBC/C OMPLE TE BLD COUNT W/DIF F lymphocytes 19.1 % 16.0-4 7.0 Not Available [facility] (Lab) [address] [place], [address], 08/18/2022 13:49:39 08/19/19 23 08/18/2022 CBC/C OMPLE TE BLD COUNT W/DIF F monocytes 7.4 % 5.0-12 .0 Not Available [facility] (Lab) [address] [place], [address], 08/18/2022 13:49:39 08/19/19 23 08/18/2022 CBC/C OMPLE TE BLD COUNT W/DIF F eosinophils 2.2 % 1.0-7. 0 Not Available [facility] (Lab) [address] [place], [address], 08/18/2022 13:49:39 08/19/19 23 08/18/2022 CBC/C OMPLE TE BLD COUNT W/DIF F basophils 0.4 % 0.0-2. 0 Not Available [facility] (Lab) [address] [place], [address], 08/18/2022 13:49:39 08/19/19 23 08/18/2022 CBC/C OMPLE TE BLD COUNT W/DIF F immature granulocytes 0.4 % 0.00-0 .50 Not Available [facility] (Lab) [address] [place], [address], 08/18/2022 13:49:39 08/19/1908/18/2022 CBC/C OMPLE TE BLD COUNT W/DIF F neutrophils, absolute count 5.69 x10'3 /uL 1.5-8. 0 Not Available [facility] (Lab) [address] [place], [address], 08/18/2022 13:49:39 08/19/19 23 08/18/2022 CBC/C OMPLE TE BLD COUNT W/DIF F lymphocytes, absolute count 1.54 x10'3 /uL 1.07-3 .43 Not Available [facility] (Lab) [address] [place], [address], 08/18/2022 13:49:39 08/19/1908/18/2022 CBC/C OMPLE TE BLD COUNT W/DIF F monocytes, absolute count 0.60 x10'3 /uL 0.29-0 .99 Not Available [facility] (Lab) [address] [place], [address], 08/18/2022 13:49:39 08/19/1908/18/2022 CBC/C OMPLE TE BLD COUNT W/DIF F eosinophils, absolute count 0.18 x10'3 /uL 0.02-0 .53 Not Available [facility] (Lab) [address] [place], [address], 08/18/2022 13:49:39 08/19/1908/18/2022 CBC/C OMPLE TE BLD COUNT W/DIF F basophils, absolute count 0.03 x10'3 /uL 0.01-0 .08 Not Available [facility] (Lab) [address] [place], [address], 08/18/2022 13:49:39 08/19/19 23 08/18/2022 CBC/C OMPLE TE BLD COUNT W/DIF F immature granulocytes ,absolute 0.03 x10'3 /uL 0.00-0 .05 Not Available [facility] (Lab) [address] [place], [address], 08/18/2022 13:49:39 08/19/19 23 08/18/2022 CBC/C OMPLE TE BLD COUNT W/DIF F nucleated red blood cells 0.0 % -0 Not Available [facility] (Lab) [address] [place], [address], 08/18/2022 13:49:39 08/19/19 23 08/18/2022 CBC/C OMPLE TE BLD COUNT W/DIF F NRBC# 0.00 x10'3 /uL Not Available [facility] (Lab) [address] [place], [address], 08/18/2022 13:49:39 08/19/19 23 08/18/2022 COMPR EHENS MITCHEL METAB OLIC PANEL sodium 137 mmol/ L 137-14 5 Not Available [facility] (Lab) [address] [place], [address], 08/18/2022 14:31:04 08/19/19 23 08/18/2022 COMPR EHENS MITCHEL METAB OLIC PANEL potassium 4.2 mmol/ L 3.5-5. 1 Not Available [facility] (Lab) [address] [place], [address], 08/18/2022 14:31:04 08/19/19 23 08/18/2022 COMPR EHENS MITCHEL METAB OLIC PANEL chloride 102 mmol/ L 98-107 Not Available [facility] (Lab) [address] [place], [address], 08/18/2022 14:31:04 08/19/19 23 08/18/2022 COMPR EHENS MITCHEL METAB OLIC PANEL carbon dioxide 29 mmol/ L 22-30 Not Available [facility] (Lab) [address] [place], [address], 08/18/2022 14:31:04 08/19/19 23 08/18/2022 COMPR EHENS MITCHEL METAB OLIC PANEL anion gap 10.2 mmol/ L 14-22 low Not Available [facility] (Lab) [address] [place], [address], 08/18/2022 14:31:04 08/19/19 23 08/18/2022 COMPR EHENS MITCHEL METAB OLIC PANEL glucose 93 mg/dL 70-99 Not Available [facility] (Lab) [address] [place], [address], 08/18/2022 14:31:04 08/19/19 23 08/18/2022 COMPR EHENS MITCHEL METAB OLIC PANEL BUN 15 mg/dL 8-19 Not Available [facility] (Lab) [address] [place], [address], 08/18/2022 14:31:04 08/19/19 23 08/18/2022 COMPR EHENS MITCHEL METAB OLIC PANEL creatinine 0.68 mg/dL 0.66-1 .25 Not Available [facility] (Lab) [address] [place], [address], 08/18/2022 14:31:04 08/19/19 23 08/18/2022 COMPR EHENS MITCHEL METAB OLIC PANEL GFR >60 Refer ence Range : Alba ge GFR Healt hy Adult : >60 mL/mi n/1.7 3 m2 Chron ic Kidne y Disea se: 15-60 mL/mi n/1.7 3 m2 Kidne y Failu re: <15/m L/min /1.73 m2 www.n iddk. nih.g ov The MDRD study equat ion has not been valid ated in child prashant <18 years of age; pregn ant women ; the elder ly >85 years of age; or in some racia l or ethni c subgr oups, such as Hispa nics. Outsi de the valid ated lavern eters , estim ated GFR is less accur ate, requi ring clini kat judgm ent on a case- by-ca se basis . Clini kat inter preta tion for other races and ages must be made by the clini hugo. The MDRD study equat ion has not been valid ated for the evalu ation of serum creat inine relat ed to nutri megan l statu s or medic ation usage . For perso ns <18 years of age, a pedia tric GFR calcu lator is avail able on the [facility] websi te: https ://katie ellison.rose alex.o viviana/pr ofess ional s/kdo qi/gf r_cal culat or Not Available [facility] (Lab) [address] [place], [address], 08/18/2022 14:31:04 08/19/19 23 08/18/2022 COMPR EHENS MITCHEL METAB OLIC PANEL alkaline phosphatase 75 U/L 38-[address] [facility] (Lab) [address] [place], [address], 08/18/2022 14:31:04 08/19/19 23 08/18/2022 COMPR EHENS MITCHEL METAB OLIC PANEL alanine aminotransfe rase 19 U/L 0-35 Not Available [facility] (Lab) [address] [place], [address], 08/18/2022 14:31:04 08/19/19 23 08/18/2022 COMPR EHENS MITCHEL METAB OLIC PANEL aspartate aminotransfe rase 64 U/L 15-37 high Not Available [facility] (Lab) [address] [place], [address], 08/18/2022 14:31:04 08/19/19 23 08/18/2022 COMPR EHENS MITCHEL METAB OLIC PANEL bilirubin, total 0.40 mg/dL 0.20-1 .30 Not Available [facility] (Lab) [address] [place], [address], 08/18/2022 14:31:04 08/19/19 23 08/18/2022 COMPR EHENS MITCHEL METAB OLIC PANEL calcium 9.6 mg/dL 8.4-10 .2 Not Available [facility] (Lab) [address] [place], [address], 08/18/2022 14:31:04 08/19/19 23 08/18/2022 COMPR EHENS MITCHEL METAB OLIC PANEL total protein 6.8 g/dL 6.3-8. 2 Not Available [facility] (Lab) [address] [place], [address], 08/18/2022 14:31:04 08/19/19 23 08/18/2022 COMPR EHENS MITCHEL METAB OLIC PANEL albumin 4.1 g/dL 3.0-4. 4 Not Available [facility] (Lab) [address] [place], [address], 08/18/2022 14:31:04 08/19/19 23 08/18/2022 COMPR EHENS MITCHEL METAB OLIC PANEL globulin 2.7 g/dL 2.6-4. 2 Not Available [facility] (Lab) [address] [place], [address], 08/18/2022 14:31:04 08/19/19 23 08/18/2022 COMPR EHENS MITCHEL METAB OLIC PANEL A/G ratio 1.5 ratio 1.0-2. 0 Not Available [facility] (Lab) [address] [place], [address], 08/18/2022 14:31:04 08/19/19 23 08/18/2022 VITAM IN D 25-HY DROXY [id number] 80.9 NG/mL 30-100 Vitam in D Statu s: Defic ient: <20 ng/mL Insuf ficie nt: 20-29 ng/mL Suffi cient : 30-10 0 ng/mL Not Available [facility] (Lab) [address] [place], [address], 08/18/2022 14:39:26 08/19/19 23 08/18/2022 T3 FREE free T3 2.5 pg/mL 2.77-5 .27 low Not Available [facility] (Lab) [address] [place], [address], 08/18/2022 15:12:14 08/19/19 23 08/18/2022 T4 FREE free T4 1.12 NG/dL 0.78-2 .19 Not Available [facility] (Lab) [address] [place], [address], 08/18/2022 15:12:16 08/19/19 23 08/18/2022 TSH thyroid-stim ulating hormone 0.948 uIU/m L 0.465- 4.680 Not Available [facility] (Lab) [address] [place], [address], 08/18/2022 15:23:46 02/24/20 23 02/23/2023 CBC/C OMPLE TE BLD COUNT W/DIF F white blood cells 9.2 x10'3 /uL 4.2-10 .8 Not Available [facility] (Lab) [address] [place], [address], 02/23/2023 17:57:44 02/24/20 23 02/23/2023 CBC/C OMPLE TE BLD COUNT W/DIF F red blood cells 4.63 x10'6 /uL 3.80-5 .20 Not Available [facility] (Lab) [address] [place], [address], 02/23/2023 17:57:44 02/24/20 23 02/23/2023 CBC/C OMPLE TE BLD COUNT W/DIF F hemoglobin 14.0 g/dL 12.0-1 5.6 Not Available [facility] (Lab) [address] [place], [address], 02/23/2023 17:57:44 02/24/20 23 02/23/2023 CBC/C OMPLE TE BLD COUNT W/DIF F hematocrit 43.1 % 35.7-4 5.7 Not Available [facility] (Lab) [address] [place], [address], 02/23/2023 17:57:44 02/24/20 23 02/23/2023 CBC/C OMPLE TE BLD COUNT W/DIF F mean red cell volume 93.1 fL 82.0-9 9.0 Not Available [facility] (Lab) [address] [place], [address], 02/23/2023 17:57:44 02/24/20 23 02/23/2023 CBC/C OMPLE TE BLD COUNT W/DIF F mean red cell hemoglobin 30.2 pg 27.0-3 3.0 Not Available [facility] (Lab) [address] [place], [address], 02/23/2023 17:57:44 02/24/20 23 02/23/2023 CBC/C OMPLE TE BLD COUNT W/DIF F mean RBC HGB concentratio n 32.5 g/dL 31.0-3 6.0 Not Available [facility] (Lab) [address] [place], [address], 02/23/2023 17:57:44 02/24/20 23 02/23/2023 CBC/C OMPLE TE BLD COUNT W/DIF F red cell distribution width 14.0 % 11.8-1 5.5 Not Available [facility] (Lab) [address] [place], [address], 02/23/2023 17:57:44 02/24/2002/23/2023 CBC/C OMPLE TE BLD COUNT W/DIF F platelets 312 x10'3 /uL 150-40 0 Not Available [facility] (Lab) [address] [place], [address], 02/23/2023 17:57:44 02/24/20 23 02/23/2023 CBC/C OMPLE TE BLD COUNT W/DIF F mean platelet volume 10.2 fL 9.0-12 .4 Not Available [facility] (Lab) [address] [place], [address], 02/23/2023 17:57:44 02/24/2002/23/2023 CBC/C OMPLE TE BLD COUNT W/DIF F neutrophils 61.5 % 39.0-7 2.0 Not Available [facility] (Lab) [address] [place], [address], 02/23/2023 17:57:44 02/24/2002/23/2023 CBC/C OMPLE TE BLD COUNT W/DIF F lymphocytes 26.4 % 16.0-4 7.0 Not Available [facility] (Lab) [address] [place], [address], 02/23/2023 17:57:44 02/24/20 23 02/23/2023 CBC/C OMPLE TE BLD COUNT W/DIF F monocytes 9.1 % 5.0-12 .0 Not Available [facility] (Lab) [address] [place], [address], 02/23/2023 17:57:44 02/24/20 23 02/23/2023 CBC/C OMPLE TE BLD COUNT W/DIF F eosinophils 2.2 % 1.0-7. 0 Not Available [facility] (Lab) [address] [place], [address], 02/23/2023 17:57:44 11/06/02/23/2023 CBC/C OMPLE TE BLD COUNT W/DIF F basophils 0.4 % 0.0-2. 0 Not Available [facility] (Lab) [address] [place], [address], 02/23/2023 17:57:44 02/24/20 23 02/23/2023 CBC/C OMPLE TE BLD COUNT W/DIF F immature granulocytes 0.4 % 0.00-0 .50 Not Available [facility] (Lab) [address] [place], [address], 02/23/2023 17:57:44 02/24/20 23 02/23/2023 CBC/C OMPLE TE BLD COUNT W/DIF F neutrophils, absolute count 5.64 x10'3 /uL 1.5-8. 0 Not Available [facility] (Lab) [address] [place], [address], 02/23/2023 17:57:44 02/24/20 23 02/23/2023 CBC/C OMPLE TE BLD COUNT W/DIF F lymphocytes, absolute count 2.42 x10'3 /uL 1.07-3 .43 Not Available [facility] (Lab) [address] [place], [address], 02/23/2023 17:57:44 02/24/20 23 02/23/2023 CBC/C OMPLE TE BLD COUNT W/DIF F monocytes, absolute count 0.83 x10'3 /uL 0.29-0 .99 Not Available [facility] (Lab) [address] [place], [address], 02/23/2023 17:57:44 02/24/20 23 02/23/2023 CBC/C OMPLE TE BLD COUNT W/DIF F eosinophils, absolute count 0.20 x10'3 /uL 0.02-0 .53 Not Available [facility] (Lab) [address] [place], [address], 02/23/2023 17:57:44 02/24/20 23 02/23/2023 CBC/C OMPLE TE BLD COUNT W/DIF F basophils, absolute count 0.04 x10'3 /uL 0.01-0 .08 Not Available [facility] (Lab) [address] [place], [address], 02/23/2023 17:57:44 02/24/20 23 02/23/2023 CBC/C OMPLE TE BLD COUNT W/DIF F immature granulocytes ,absolute 0.04 x10'3 /uL 0.00-0 .05 Not Available [facility] (Lab) [address] [place], [address], 02/23/2023 17:57:44 02/24/20 23 02/23/2023 CBC/C OMPLE TE BLD COUNT W/DIF F nucleated red blood cells 0.0 % -0 Not Available [facility] (Lab) [address] [place], [address], 02/23/2023 17:57:44 02/24/20 23 02/23/2023 CBC/C OMPLE TE BLD COUNT W/DIF F NRBC# 0.00 x10'3 /uL Not Available [facility] (Lab) [address] [place], [address], 02/23/2023 17:57:44 02/24/20 23 02/23/2023 COMPR EHENS MITCHEL METAB OLIC PANEL sodium 138 mmol/ L 137-14 5 Not Available [facility] (Lab) [address] [place], [address], 02/23/2023 18:26:39 02/24/20 23 02/23/2023 COMPR EHENS MITCHEL METAB OLIC PANEL potassium 4.3 mmol/ L 3.5-5. 1 Not Available [facility] (Lab) [address] [place], [address], 02/23/2023 18:26:39 02/24/20 23 02/23/2023 COMPR EHENS MITCHEL METAB OLIC PANEL chloride 100 mmol/ L 98-107 Not Available [facility] (Lab) [address] [place], [address], 02/23/2023 18:26:39 02/24/20 23 02/23/2023 COMPR EHENS MITCHEL METAB OLIC PANEL carbon dioxide 32 mmol/ L 22-30 high Not Available [facility] (Lab) [address] [place], [address], 02/23/2023 18:26:39 02/24/20 23 02/23/2023 COMPR EHENS MITCHEL METAB OLIC PANEL anion gap 10.3 mmol/ L 14-22 low Not Available [facility] (Lab) [address] [place], [address], 02/23/2023 18:26:39 02/24/20 23 02/23/2023 COMPR EHENS MITCHEL METAB OLIC PANEL glucose 96 mg/dL 70-99 Not Available [facility] (Lab) [address] [place], [address], 02/23/2023 18:26:39 02/24/20 23 02/23/2023 COMPR EHENS MITCHEL METAB OLIC PANEL BUN 14 mg/dL 8-19 Not Available [facility] (Lab) [address] [place], [address], 02/23/2023 18:26:39 02/24/20 23 02/23/2023 COMPR EHENS MITCHEL METAB OLIC PANEL creatinine 0.72 mg/dL 0.66-1 .25 Not Available [facility] (Lab) [address] [place], [address], 02/23/2023 18:26:39 02/24/20 23 02/23/2023 COMPR EHENS MITCHEL METAB OLIC PANEL GFR >60 Refer ence Range : Alba ge GFR Healt hy Adult : >60 mL/mi n/1.7 3 m2 Chron ic Kidne y Disea se: 15-60 mL/mi n/1.7 3 m2 Kidne y Failu re: <15/m L/min /1.73 m2 www.n iddk. nih.g ov The MDRD study equat ion has not been valid ated in child prashant <18 years of age; pregn ant women ; the elder ly >85 years of age; or in some racia l or ethni c subgr oups, such as Hispa nics. Outsi de the valid ated lavern eters , estim ated GFR is less accur ate, requi ring clini kat judgm ent on a case- by-ca se basis . Clini kat inter preta tion for other races and ages must be made by the clini hugo. The MDRD study equat ion has not been valid ated for the evalu ation of serum creat inine relat ed to nutri megan l statu s or medic ation usage . For perso ns <18 years of age, a pedia tric GFR calcu lator is avail able on the [facility] websi te: https ://katie w.rose alex.o viviana/pr ofess ional s/kdo qi/gf r_cal culat or Not Available [facility] (Lab) [address] [place], [address], 02/23/2023 18:26:39 02/24/20 23 02/23/2023 COMPR EHENS MITCHEL METAB OLIC PANEL alkaline phosphatase 81 U/L 38-[address] [facility] (Lab) [address] [place], [address], 02/23/2023 18:26:39 02/24/20 23 02/23/2023 COMPR EHENS MITCHEL METAB OLIC PANEL alanine aminotransfe rase 25 U/L 0-35 Not Available [facility] (Lab) [address] [place], [address], 02/23/2023 18:26:39 02/24/20 23 02/23/2023 COMPR EHENS MITCHEL METAB OLIC PANEL aspartate aminotransfe rase 74 U/L 15-37 high Not Available [facility] (Lab) [address] [place], [address], 02/23/2023 18:26:39 02/24/20 23 02/23/2023 COMPR EHENS MITCHEL METAB OLIC PANEL bilirubin, total 0.50 mg/dL 0.20-1 .30 Not Available [facility] (Lab) [address] [place], [address], 02/23/2023 18:26:39 02/24/20 23 02/23/2023 COMPR EHENS MITCHEL METAB OLIC PANEL calcium 10.1 mg/dL 8.4-10 .2 Not Available [facility] (Lab) [address] [place], [address], 02/23/2023 18:26:39 02/24/20 23 02/23/2023 COMPR EHENS MITCHEL METAB OLIC PANEL total protein 7.1 g/dL 6.3-8. 2 Not Available [facility] (Lab) [address] [place], [address], 02/23/2023 18:26:39 02/24/20 23 02/23/2023 COMPR EHENS MITCHEL METAB OLIC PANEL albumin 4.2 g/dL 3.0-4. 4 Not Available [facility] (Lab) [address] [place], [address], 02/23/2023 18:26:39 02/24/20 23 02/23/2023 COMPR EHENS MITCHEL METAB OLIC PANEL globulin 2.9 g/dL 2.6-4. 2 Not Available [facility] (Lab) [address] [place], [address], 02/23/2023 18:26:39 02/24/20 23 02/23/2023 COMPR EHENS MITCHEL METAB OLIC PANEL A/G ratio 1.4 ratio 1.0-2. 0 Not Available [facility] (Lab) [address] [place], [address], 02/23/2023 18:26:39 02/24/20 23 02/23/2023 LIPID PANEL cholesterol 211 mg/dL 140-19 9 high NIH JULIUS NSUS RECOM MENDA TION FOR MOR STERO L: ADULT CHILD LOW RISK: <200 <170 BORDE RLINE : <200- 239 ----- HIGH RISK: >240 >200 Not Available [facility] (Lab) [address] [place], [address], 02/23/2023 18:26:41 02/24/20 23 02/23/2023 LIPID PANEL triglyceride s 187 mg/dL 0-150 high NIH JULIUS NSUS REPOR T RECOM MENDA TION FOR TRIGL YCERI RUKHSANA: ADULT CHILD LOW RISK: <150 ----- BODER LINE: 150-1 99 ----- HIGH RISK: >200 ----- Not Available [facility] (Lab) [address] [place], [address], 02/23/2023 18:26:41 02/24/20 23 02/23/2023 LIPID PANEL HDL cholesterol 69 mg/dL 40- Not Available [facility] (Lab) [address] [place], [address], 02/23/2023 18:26:41 02/24/20 23 02/23/2023 LIPID PANEL LDL cholesterol, calculated 105 mg/dL 0-130 NIH JULIUS NSUS REPOR T RECOM MENDA TIONS FOR LDL: ADULT CHILD LOW RISK <130 <110 (OPTI MAL LDL) <100 ----- BORDE RLINE : 130-1 59 ----- HIGH RISK: >160 >130 A TRIGL YCERI DE RESUL T >400 INVAL IDATE S THE CALCU LATIO N FOR LDL FRACT IONAT ION - THE LDL RESUL T WILL NOT BE REPOR KYLE. Not Available [facility] (Lab) [address] [place], [address], 02/23/2023 18:26:41 11/13/19 22 XR, hand, 3 or more view No observ ation record ed. [id number] [address], [place], [address], 06/18/2022 02:37:01 12/04/19 22 12/03/2021 MAMMO , scree antonette, digit al, bilat eral [facility] [address], [place] [address] Gisela xavier Name: CHRISTOPHER MARCOS F L Access ion #: [id number] Sex: F : 1950 3 Locati on: MOP Attend ing Physic piedad: CULLEN ROSA Orderi ng Physic piedad: CULLEN ROSA Exam Date: 022 1:39 PM Exam Name: MG SCRN BREAST JANA BILAT Admitt ing Diagno sis(es ): MAMMOG TARA REPORT - FINAL EXAM: MG SCRN BREAST JANA BILAT HISTOR Y: SCREEN ING MAMMOG [place] 71-yea r-old female with no curren t breast compla ints. The patien t has a family histor y of breast cancer in a sister . COMPAR RYANN: Mammog tara dated 2020 and 2019. TECHNI QUE: Bilate ral CC and MLO views of the breast s were perfor med. Digita l Mammog tara images were obtain ed. CAD (compu ter assist ed detect ion) was utiliz ed. 3D Digita l breast tomosy nthesi s was perfor med and used in the interp retati on of images . FINDIN GS: The breast s are almost entire ly fatty. Page 1 of 2 [facility] Gisela xavier Name: CHRISTOPHER MARCOS F L Access ion #: [id number] Sex: F : 1950 3 Exam Date: 1:39 PM Exam Name: SCRN BREAST JANA BILAT Admitt ing Diagno sis(es ): No masses , asymme tries, suspic ious calcif icatio ns, or severo ectura l distor tion are seen. IMPRES MANUELA: BIRADS 1: Assess ment comple te. Negati ve. Recomm end annual screen ing mammog tara. Accord ing to the [employer], yearly mammog elena are recomm ended starti ng at age 40 and contin uing as long as the woman is in good health . Clinic al Breast Exam should be part of the period health exam-a bout every 3 years for women in their 20s and 30s and every year for women 40 and over. Breast self-e xam is an option for women in their 20s. Any breast change noted on the breast self-e xam she would be report ed prompt ly to the gisela xavier's [facility] er. A negati ve mammog tara report should not discou rage follow -up or biopsy of a clinic ally signif icant findin g and/or abnorm ality. Dense breast tissue may obscur e small neopla sms. This gisela xavier has been entere d into a mammog tara remind er system with a target date for her next mammog [place]. Create d and electr onical ly signed by: Gordon fernandes MD Signed Date: 3:33 PM (CT) Dictat ed by: Gordon fernandes MD DD: 3:33 PM (CT) DT: 3:33 PM (CT) Page 2 of 2 [id number] [facility] (Imaging) [address] [place], [address], 06/18/2022 02:37:01 12/04/19 22 12/03/2021 bone densi ty [facility] [address] [place] [address] Gisela xavier Name: FORBLANKA MARCOS F L Access ion #: [id number] Sex: F : 1950 3 Locati on: MOP Attend ing Physic piedad: CULLEN ROSA Orderi ng Physic piedad: CULLEN ROSA Exam Date: 1:58 PM Exam Name: XR DEXA-H IPS PELVIS SPINE Admitt ing Diagno sis(es ): RADIOL OGY REPORT - FINAL EXAM: XR DEXA-H IPS PELVIS SPINE HISTOR Y: MENOPA USAL 71-yea r-old female with osteop orosis screen ing. COMPAR RYANN: DEXA scan dated 2018. TECHNI QUE: Dual energy x-ray of absorp tion examin ation of the bilate ral hips and lumbar spine in AP projec tion was perfor med. FINDIN GS: Lumbar Spine (L1-L4 ): The mean bone minera l densit y is 1.049 g/cm2 hydrox yapati te, correl ating with a T-scor e of -1.2. BMD of the lumbar spine is decrea sed 6% since the prior study. Bilate ral hips: The mean bone minera l densit y is 0.868 g/cm2 calciu m Page [address] [facility] Name: Liliya DON Access ion #: [id number] Sex: F : 1950 3 Exam Date: 022 1:58 PM Exam Name: XR DEXA-H IPS PELVIS SPINE Admitt ing Diagno sis(es ): hydrox yapati te, correl ating with a T-scor e of -1.1. BMD of the hips is decrea sed 4.8% since the prior study. IMPRES MANUELA: 1. The patien t's lumbar spine T-scor e is consis tent with osteop enia. 2. The patien t's bilate ral hip T-scor e is consis tent with osteop enia. Accord ing to the [employer]i zation , T-scor e values greate r than -1.0 are normal , values betwee n -1.0 and -2.5 are catego rized as osteop enia, T-scor e of -2.5 or more are catego rized as osteop orosis . Create d and electr onical ly signed by: Gordon fernandes MD Signed Date: 2:43 PM (CT) Dictat ed by: Gordon fernandes MD DD: 2:43 PM (CT) DT: 2:43 PM (CT) Page 2 of 2 [id number] [facility] (Imaging) [address] [place], [address], 06/18/2022 02:37:01 02/24/20 23 02/23/2023 XR, humer us [facility] [address] [place] [address] Patien t Name: Liliya DON Access ion #: [id number] Sex: F : 1950 2 Dictat ed By: Bowen Valle Attend ing Physic piedad: CULLEN ROSA Orderi Physic piedad: CULLEN ROSA Exam Date: 2022 15:52 PM Exam Name: XR HUMERU S LT Admitt ing Diagno sis(es ): LEFT HUMORA L RADIOG RAPH. INDICA TION: pain TECHNI QUE: 2 radiog raphic views of the left humeru s were obtain ed. COMPAR RYANN: none . FINDIN GS: . There is no eviden ce for fractu re, sublux ation, or disloc ation. There is normal anatom ic alignm ent of the bones. There is normal bone minera lizati on. The soft tissue s are unrema rkable . There are no radiop aque foreig n bodies . IMPRES MANUELA: No acute fractu re. Electr onical ly Signed by: Bowen Valle at 2022 16:19: 57 PM Page 1 [email or web address] [facility] (Imaging) [address] [place], [address], 03/25/2023 14:42:05 03/11/20 23 03/11/2023 scree antonette breas t jana, bilat [facility] [address] [facility] [place] [address] Patiyonatan t Name: Liliya DON Access ion #: [id number] Sex: F : 1950 7 Dictat ed By: Mylene Rico Attend ing Physic piedad: CULLEN ROSA Orderi ng Physic piedad: CULLEN ROSA Exam Date: 2022 13:38 PM Exam Name: MG SCRN BREAST JANA BILAT Admitt ing Diagno sis(es ): SCREEN ING MAMMOG [place] WITH TOMOSY NTHESI S: REASON FOR EXAM: screen ing mammog tara COMPAR RYANN: TECHNI QUE: Bilate ral CC and MLO views obtain ed. Images were obtain ed using a Digita l Tomosy nthesi s Unit. Standa rd 2D and 3D Tomosy nthesi s images were review ed. FINDIN GS: BREAST COMPOS ITION: There are scatte red areas of fibrog landul ar densit y in the bilate ral breast s. In the right breast , no asymme trical parenc hymal patter n, severo ectura l distor tion, pleomo rphic microc alcifi cation s or masses . In the left breast , no asymme trical parenc hymal patter n, severo ectura l distor tion, pleomo rphic microc alcifi cation s or masses . IMPRES MANUELA: No findin gs of malign vilma. Recomm end annual mammog [place]. BIRADS : 2 - Benign Electr onical ly Signed by: Mylene Rico at 2022 15:08: 25 PM Page 1 [email or web address] [facility] (Imaging) [address] [place], [address], 03/25/2023 14:42:06 04/01/20 24 04/01/2024 rosalind zayasas t jana, bilat [facility] [address] [facility] [address], [place] [address] Patien t Name: Liliya DON Access ion #: [id number] Sex: F : 1950 9 Dictat ed By: Mylene Rico Attend ing Physic piedad: CULLEN ROSA Orderi ng Physic piedad: CULLEN ROSA Exam Date: 2023 13:51 PM Exam Name: MG SCRN BREAST JANA BILAT Admitt ing Diagno sis(es ): PROCED URE: SCREEN ING MAMMOG [place] WITH TOMOSY NTHESI S REASON FOR EXAM: screen ing mammog [place] COMPAR RYANN: MG SCRN BREAST JANA BILAT on DOS: , MG SCRN BREAST JANA BILAT 3D on DOS: 2, MG SCRN BREAST JANA BILAT 3D on DOS: 11/19/20 , SCREEN ING BREAST JANA, BILAT 3D on DOS: 10/19/18 , SCREEN ING BREAST JANA, BILAT 3D on DOS: 8 TECHNI QUE: Bilate ral CC and MLO views obtain ed. Images were obtain ed using a Digita l Tomosy nthesi s Unit. Standa rd 2D and 3D Tomosy nthesi s images were review ed. This examin ation was analyz ed using [employer] t DBT/MM G, an AI softwa re develo ped to enhanc e the effect ivenes s of breast cancer screen ing with mammog tara. FINDIN GS: BREAST COMPOS ITION: A - The breast s are almost entire ly fatty. In the right breast , no asymme trical parenc hymal patter n, severo ectura l distor tion, pleomo rphic microc alcifi cation s or masses . In the left breast , no asymme trical parenc hymal patter n, severo ectura l distor tion, pleomo rphic microc alcifi cation s or masses . IMPRES MANUELA: No findin gs of malign vilma. RECOMM ENDATI ON: Recomm end annual mammog [place]. Page 1 [facility] [address] [place] [address] Patien t Name: Liliya DON ion #: [id number] Sex: F : 1950 9 Dictat ed By: Mylene Rico Attend ing Physic piedad: KEIKO BEVERLY Orderi Physic piedad: CULLEN ROSA Exam Date: 2023 13:51 PM Exam Name: MG MARTINEZ BREAST JANA BILAT Admitt ing Diagno sis(es ): ASSESS MENT: BIRADS : 1 - Negati ve Electr onical ly Signed by: Mylene Rico at 2023 14:17: 05 PM Page 2 [email or web address] [facility] (Imaging) [address] [place] [address], [address], 05/26/2024 15:40:52 Result Notes Documentation Provider Name and Address Organization Details Recorded Time Mammo, Screening, Digital, Bilateral : [address] [address] Patient Name: Liliya BARR Sex: F : 1950 Location: [facility] Attending Physician: DANIA ROSA Ordering Physician: DANIA ROSA Exam Date: 12/03/2021 1:39 PM Exam Name: MG MARTINEZ BREAST JANA BILAT Admitting Diagnosis(es): MAMMOGRAPHY REPORT - FINAL EXAM: MG MARTINEZ BREAST JANA BILAT HISTORY: SCREENING MAMMOGRAM 71-year-old female with no current breast complaints. The patient has a family history of breast cancer in a sister. COMPARISON: Mammography dated 11/19/2020 and 10/31/2019. TECHNIQUE: Bilateral CC and MLO views of the breasts were performed. Digital Mammography images were obtained. CAD (computer assisted detection) was utilized. 3D Digital breast tomosynthesis was performed and used in the interpretation of images. FINDINGS: The breasts are almost entirely fatty. Page 1 of 2 [facility] Patient Name: Liliya BARR Sex: F : 1950 Exam Date: 12/03/2021 1:39 PM Exam Name: MG BETTSN BREAST JANA BILAT Admitting Diagnosis(es): No masses, asymmetries, suspicious calcifications, or architectural distortion are seen. IMPRESSION: BIRADS 1: Assessment complete. Negative. Recommend annual screening mammography. According to the [employer], yearly mammograms are recommended starting at age 40 and continuing as long as the woman is in good health. Clinical Breast Exam should be part of the periodic health exam-about every 3 years for women in their 20s and 30s and every year for women 40 and over. Breast self-exam is an option for women in their 20s. Any breast change noted on the breast self-exam she would be reported promptly to the patient's health care provider. A negative mammography report should not discourage follow-up or biopsy of a clinically significant finding and/or abnormality. Dense breast tissue may obscure small neoplasms. This patient has been entered into a mammography reminder system with a target date for her next mammogram. Created and electronically signed by: Gordon Hurst MD Signed Date: 12/03/2021 3:33 PM (CT) Dictated by: Gordon Hurst MD (CT) (CT) Page 2 of 2 Not Available [facility] 06/18/2022 02:37:03 Xr, Humerus : [place] [id number] Patient Name: Liliya BARR Sex: F : 1950 Dictated By: Bowen Valle Attending Physician: DANIA ROSA Ordering Physician: DANIA ROSA Exam Date: 02/23/2023 15:52 PM Exam Name: XR HUMERUS LT Admitting Diagnosis(es): LEFT HUMORAL RADIOGRAPH. INDICATION: pain TECHNIQUE: 2 radiographic views of the left humerus were obtained. COMPARISON: none . FINDINGS: . There is no evidence for fracture, subluxation, or dislocation. There is normal anatomic alignment of the bones. There is normal bone mineralization. The soft tissues are unremarkable. There are no radiopaque foreign bodies. IMPRESSION: No acute fracture. Page 1 Stephanie Pagan RN [facility], [facility] i.[employer] [facility] 03/25/2023 14:42:05 Problems Name Problem SNOMED Code Status Onset Date Resolution Date Notes Provider Name and Address Organization Details Recorded Time Blood glucose outside reference range 866015662 Active Not Available [facility] 3 04:44:19 Intestinal disaccharidas e deficiency 32191841 Active Not Available [facility] 3 04:44:19 Pleuritic pain 8297578 Active Not Available [facility] 3 04:44:19 Gastroesophag eal reflux disease without esophagitis 880853331 Active 2021 Not Available [facility] 3 04:44:19 Pure hypercholeste rolemia 068212818 Active Not Available [facility] 3 04:44:19 Dizziness and giddiness 255277051 Active Not Available [facility] 3 04:44:19 Osteopenia 146077601 Active 2021 Not Available [facility] 3 04:44:19 Vitamin D deficiency 48284573 Active 2018 Not Available [facility] 3 04:44:19 Malignant tumor of stomach 535247682 Active Not Available [facility] 3 04:44:19 Osteoarthrosi s of the carpometacarp al joint of the thumb 04750879 Active 2021 Not Available [facility] 3 04:44:19 Diverticular disease of colon 822736883 Active Not Available [facility] 3 04:44:19 Dizziness 593540933 Active Not Available [facility] 3 04:44:19 Pharyngitis 990899456 Active Not Available [facility] 3 04:44:19 Anxiety 82351810 Active Not Available [facility] 3 04:44:19 Cough 76982019 Active Not Available [facility] 3 04:44:19 Carpal tunnel syndrome 68947290 Active 2021 Not Available [facility] 3 04:44:19 Essential hypertension 56120646 Active Not Available [facility] 3 04:44:19 Chronic sinusitis 98991155 Active 2022 Not Available [facility] 3 04:44:19 Pain in left arm 759563858 Active 2022 Not Available [facility] 3 04:44:19 Vertigo 988734934 Active 2023 QUENTIN Ding null, [facility] i.TV [facility] 4 14:57:05 Problem Notes None recorded. Procedures Surgical History Date Name Laterality Status Provider Name and Address Organization Details Recorded Time 08/19/19 Medicare Wellness CPT Code, subsequent completed Hui Howard RN [facility] [address] [employer] [facility] 08/18/2022 11:10:49 procedure on pancreas completed Not Available [facility] 06/18/2022 02:30:41 arthroplasty of joint of the thumb completed Not Available [facility] 06/18/2022 02:30:41 Carpal tunnel completed Not Available [facility] 06/18/2022 02:30:41 section completed Not Available [facility] 06/18/2022 02:30:41 Imaging Results None recorded. Procedure Notes None recorded. Medical Equipment None Reported. Allergies No known drug allergies Medications Name Sig Start Date Stop Date Status Note LastModified by Organization Details LastModified Time amoxicillin 500 mg capsule Take 1 capsule every 8 hours by oral route for 7 days. 07/14 completed Not Available Not Available Not Available citalopram 40 mg tablet TAKE 1/2 TABLET EVERY DAY 05/08 completed Not Available Not Available Not Available cetirizine 10 mg tablet TAKE 1 TABLET BY MOUTH EVERY DAY active Not Available Not Available No t Available azithromyci n 250 mg tablet use as directed 07/14 completed Not Available Not Available Not Available ibuprofen 800 mg tablet Take 1 tablet twice a day by oral route. 07/30 completed Not Available Not Available Not Available Medrol (Louis) 4 mg tablets in a dose pack take decreasin g doses as directed 12/03 completed Not Available Not Available Not Available penicillin V potassium 500 mg tablet Take 1 tablet 3 times a day by oral route for 7 days. 06/26 completed Not Available Not Available Not Available amoxicillin 500 mg tablet Take 1 tablet 3 times a day by oral route for 7 days. 07/14 completed Not Available Not Available Not Available citalopram 20 mg tablet TAKE 1 TABLET BY MOUTH EVERY DAY 2023 active Not Available Not Available Not Avai lable Kenalog 10 mg/mL suspension for injection In office injection administe red by the provider 06/25 completed [facility]: 0003- 0494- 20 Not Available Not Available Not Available lisinopril 10 mg tablet TAKE 1 TABLET BY MOUTH EVERY DAY 2023 active Not Available Not Available Not Avai lable omeprazole 20 mg capsule,del ayed release TAKE 1 CAPSULE BY MOUTH EVERY DAY active Not Available Not Available No t Available raloxifene 60 mg tablet TAKE ONE TABLET DAILY 03/09 completed Not Available Not Available Not Available amoxicillin 250 mg capsule 02/14 completed Not Available Not Available Not Available montelukast 10 mg tablet TAKE 1 TABLET BY MOUTH EVERY DAY active Not Available Not Available No t Available ergocalcife rol (vitamin D2) 1,250 mcg (50,000 unit) capsule TAKE 1 CAPSULE BY MOUTH ONE TIME PER WEEK active Not Available Not Available No t Available cefuroxime axetil 500 mg tablet TAKE 1 TABLET BY MOUTH TWICE A DAY FOR 21 DAYS 02/23 completed Not Available Not Available Not Available cefdinir 300 mg capsule Take 1 capsule twice a day by oral route for 7 days. active Not Available Not Available No t Available fluticasone propionate 50 mcg/actuati on nasal spray,suspe nsion INSTILL 2 SPRAYS INTO THE NOSTRILS ONCE DAILY active Not Available Not Available No t Available diazepam 5 mg tablet TAKE 1/2 OF A TABLET BY MOUTH TWICE A DAY active Not Available Not Available No t Available amoxicillin 875 mg-potassiu m clavulanate 125 mg tablet TAKE 1 TABLET BY MOUTH TWICE A DAY FOR 7 DAYS 08/18 completed Not Available Not Available Not Available rosuvastati n 20 mg tablet TAKE 1 TABLET BY MOUTH EVERY DAY 2023 active Not Available Not Available Not Avai lable Vitamin C 2020 active Not Available Not Available Not Avai lable calcium 2018 active Not Available Not Available Not Avai lable Zyrtec 10/04 completed Not Available Not Available Not Available multivitami n QD 2017 active Not Available Not Available Not Avai lable lidocaine (PF) 10 mg/mL (1 %) injection solution In office injection administe red by the provider 06/25 completed [facility]: 0409- [phone]- 17 Not Available Not Available Not Available omeprazole 20 mg tablet,oscar yed release Take 1 tablet every day by oral route. 10/04 completed Not Available Not Available Not Available Zyrtec 10 mg capsule Take 1 capsule every day by oral route. 10/04 completed Not Available Not Available Not Available Vitals Date Recorded Body height Body mass index (BMI) Body weight Body temperature Heart rate Systolic blood pressure Diastolic blood pressure Provider Name and Address Organization Details Last Updated DateTime 4 149.86 cm 32.5 kg/m2 84427.3 7 g 100.8 [degF] 92 /min 138 mm[Hg] 82 mm[Hg] QUENTIN Arrieta RI [employer] [facility] [employer] 4 14:45:17 Date Recorded Body height Body weight Body temperature Heart rate Oxygen saturation Oxygen saturation in Arterial blood by Pulse oximetry Systolic blood pressure Diastolic blood pressure Provider Name and Address Organization Details Last Updated DateTime 3 149.86 cm 59016.1 5 g 97.4 [degF] 91 /min 97 % 97 % 126 mm[Hg] 84 mm[Hg] Nery Hollis RN [facility] [employer] 3 10:57:30 Date Recorded Body mass index (BMI) Body height Body weight Provider Name and Address Organization Details Last Updated DateTime 11/12/2021 32.3 kg/m2 149.86 cm 43935.78 g Not Available [facility] 06/18/2022 02:31:34 Date Recorded Body height Body mass index (BMI) Body weight Body temperature Heart rate Systolic blood pressure Diastolic blood pressure Provider Name and Address Organization Details Last Updated DateTime 3 149.86 cm 32.3 kg/m2 79064.7 8 g 98.6 [degF] 103 /min 118 mm[Hg] 76 mm[Hg] Stephanie delgado RN [facility] [employer] 3 15:11:15 Date Recorded Body mass index (BMI) Body height Heart rate Body temperature Body weight Systolic blood pressure Diastolic blood pressure Provider Name and Address Organization Details Last Updated DateTime 2 33.7 kg/m2 149.86 cm 84 /min 99.4 [degF] 24573.9 3 g 128 mm[Hg] 78 mm[Hg] Not Available [facility] 3 02:31:30 Social History Question Answer Notes LastModified by Organization Details LastModified Time Tobacco Smoking Status Former Smoker quit 1976 Not Available [facility] 06/18/2022 02:25:35 Do You Have An Advance Directive? Yes Patient Declined To Provide Copy For Chart. [id number] Information not available 06/18/2022 Are You Blind Or Do You Have Difficulty Seeing? No [id number] Information not available 06/18/2022 What Is Your Level Of Caffeine Consumption? Moderate [id number] Information not available 06/18/2022 How Much Tobacco Do You Chew? None [id number] Information not available 06/18/2022 In The 14 Days Before Symptom Onset, Have You Had Close Contact With A Laboratory-confi rmed COVID-19 While That Case Was Ill? No [id number] Information not available 06/18/2022 In The 14 Days Before Symptom Onset, Have You Had Close Contact With A Person Who Is Under Investigation For COVID-19 While That Person Was Ill? No [id number] Information not available 06/18/2022 Are You Deaf Or Do You Have Serious Difficulty Hearing? Yes Patient Wears Hearing Aids. Information not available 08/18/2022 What Type Of Diet Are You Following? REGULAR [id number] Information not available 06/18/2022 Which Illicit Or Recreational Drugs Have You Used? None [id number] Information not available 06/18/2022 What Is The Highest Grade Or Level Of School You Have Completed Or The Highest Degree You Have Received? [id number] Information not available 06/18/2022 Have There Been Any Changes To Your Family Or Social Situation? No [id number] Information not available 06/18/2022 What Is The Fluoride Status Of Your Home? Fluoridated [id number].[id number] [id number] Information not available 06/18/2022 When Did You Quit Smoking? 16+yearssincelast cigarette [email or web address] Information not available 08/18/2022 Are There Any Guns Present In Your Home? No [id number].[id number] [id number] Information not available 06/18/2022 Do You Use Insect Repellent Routinely? No Information not available 08/18/2022 Where Do You Live? [facility] [id number].[id number] [id number] Information not available 06/18/2022 Presence Of Domestic Violence No Information not available 08/18/2022 Guns Present In The Home? No Information not available 08/18/2022 Are You Able To Care For Yourself? Yes Information not available 08/18/2022 Are You Blind Or Do Yo Have Difficulty Seeing? No Information not available 08/18/2022 Are You Deaf Or Do You Have Serious Difficulty Hearing? Yes Patient Wears Hearing Aids. Information not available 08/18/2022 General Stress Level? Low Information not available 08/18/2022 Do You Have A Medical Power Of Account Maintenance Representative? No [id number] [id number] Information not available 06/18/2022 What Was The Date Of Your Most Recent Tobacco Screening? 04/23/2023 [email or web address] Information not available 04/23/2023 Do You Have Any Pets? Yes MIGRATION.0301 [id number] Information not available 06/18/2022 What Is Your Relationship Status? MIGRATION.0301 [id number] Information not available 06/18/2022 Do You Use Your Seat Belt Or Car Seat Routinely? Yes Information not available 08/18/2022 Do You Have Smoke And Carbon Monoxide Detectors In Your Home? Yes MIGRATION.0301 [id number] Information not available 06/18/2022 Are You Passively Exposed To Smoke? No MIGRATION.0301 [id number] Information not available 06/18/2022 Are There Any Smokers In Your House? No MIGRATION.0301 [id number] Information not available 06/18/2022 How Much Tobacco Do You Smoke? No MIGRATION.0301 [id number] Information not available 06/18/2022 Do You Use Sunscreen Routinely? No Information not available 08/18/2022 Has Tobacco Cessation Counseling Been Provided? No Information not available 08/18/2022 Have You Recently Traveled Abroad? No MIGRATION.0301 [id number] Information not available 06/18/2022 Do You Have Difficulty Walking Or Climbing Stairs? No MIGRATION.0301 [id number] Information not available 06/18/2022 Do You Have Any Dietary Restrictions? No MIGRATION.0301 [id number] Information not available 06/18/2022 Sex: Unknown Functional Status Question Answer Note LastModified by Organizat ion Details LastModified Time Do you or have you ever used smokeless tobacco? Never used smokeless tobacco MIGRATION.20723 [id number] Information not available 06/18/2022 Are you currently employed? Yes [email or web address] Information not available 02/23/2023 Do you have transportation difficulties? No MIGRATION.61355 02875 Information not available 06/18/2022 Are you able to care for yourself? Yes MIGRATION.27027 [id number] Information not available 06/18/2022 Do you have difficulty dressing or bathing? No MIGRATION.70197 16050 Information not available 06/18/2022 Do you or have you ever used e-cigarettes or vape? Never used electronic cigarettes MIGRATION.79248 86800 Information not available 06/18/2022 What is your exercise level? Moderate Patient goes to gym 5 days a week. Information not available 08/18/2022 Do you use any illicit or recreational drugs? No [email or web address] Information not available 08/18/2022 Do you or have you ever used any other forms of tobacco or nicotine? No MIGRATION.73033 58913 Information not available 06/18/2022 What is your level of alcohol consumption? Occasional MIGRATION.80341 48926 Information not available 06/18/2022 Are you able to walk? YESWOREST MIGRATION.53062 99248 Information not available 06/18/2022 Do you have difficulty doing errands alone? 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 [id number] MIGRATION.[id number] Information not available 06/18/2022 Do you have difficulty concentrating, remembering or making decisions? No MIGRATION.[id number] 26 Information not available 06/18/2022 Family History Relationship Description Onset Age of this Age Resolved Age Notes LastModified by Organization Details LastModified Time Mother Asthma MIGRATION.506 [id number] Not available 06/18/2022 02:30:43 Mother Malignant neoplasm of lung MIGRATION.998 [id number] Not available 06/18/2022 02:30:43 Father Hypertensive disorder MIGRATION.082 [id number] Not available 06/18/2022 02:30:43 Father Myocardial infarction MIGRATION.260 [id number] Not available 06/18/2022 02:30:43 Father Hypercholest erolemia MIGRATION.539 [id number] Not available 06/18/2022 02:30:44 Father Malignant tumor of kidney MIGRATION.995 [id number] Not available 06/18/2022 02:30:44 Father Malignant neoplasm of prostate MIGRATION.476 [id number] Not available 06/18/2022 02:30:44 Sister Malignant tumor of breast MIGRATION.945 [id number] Not available 06/18/2022 02:30:44 Sister Malignant tumor of colon MIGRATION.466 [id number] Not available 06/18/2022 02:30:44 Medical History Condition Response NERVE DISEASE N BLINDNESS N RHEUMATIC FEVER N KIDNEY STONES N BLADDER PROBLEMS N OTHER # 1 N POLIO N LUNG DISEASE/DISORDER N RADIATION / CHEMOTHERAPY N COPD N Other # 2 N BLOOD DISEASES N SURGERY N EAR OR HEARING PROBLEMS N MUMPS N BOWEL PROBLEMS Y DEPRESSION (INCLUDING POST ) Y STROKE/TIA N ULCERS N BENIGN PROSTATIC HYPERPLASIA N MEASLES N MYOCARDIAL INFARCTION N OBESITY N GERD/NAUSEA N ANEURYSM N URINARY/BLADDER/KIDNEY PROBLEMS N INPATIENT PSYCH CARE N CORONARY ARTERY DISEASE (CAD) N ADDICTION CONCERNS N ENDOMETRIOSIS N Impotence N USE OF BLOOD THINNERS N SKIN PROBLEMS N GASTROINTESTINAL DISORDER N PERIPHERAL VASCULAR DISEASE N MUSCLE,JOINT OR BONE PROBLEMS N GASTROINTESTINAL BLEEDING N BLOOD CLOTS N ASTHMA N CATARACTS N ERECTILE DYSFUNCTION N VARICOSITIES N GI PROBLEMS N Low Testosterone N INFERTILITY N AIDS/HIV N LIVER DISEASE N MALE HYPOGONADISM N HYPERTENSION Y Deficiency N ANXIETY DISORDER Y BLOOD TRANSFUSION N ANEMIA/BLOOD DISORDER N CHRONIC EAR INFECTIONS N BRONCHITIS N TUBERCULOSIS N GLAUCOMA N FOOT PROBLEM N DIVERTICULITIS N SLEEP APNEA N CHICKENPOX N INFECTIOUS DISEASE N HEART ARRHYTHMIA N PROSTATE N INSOMNIA N HIGH CHOLESTEROL / HYPERLIPIDEMIA Y HYPERTHYROIDISM N EYE PROBLEMS N NEUROLOGICAL PROBLEMS N EDEMA N CHRONIC PAIN SYNDROME N HYPOTHYROIDISM N CAROTID BLOCKAGE N CONSTIPATION N BACK / NECK PROBLEMS N HAVE YOU BEEN HOSPITALIZED OR SEEN IN [place] IN THE PAST YEAR ? N ATHEROSCLEROSIS N BREAST PROBLEMS N DIALYSIS N ECZEMA N OSTEOPOROSIS Y ARTHRITIS Y APPENDICITIS N DIABETES, TYPE N BAD TEETH N ENT N HEARTBURN / REFLUX N AUTISM SPECTRUM DISORDER (ASD) N HEPATITIS / LIVER DISEASE N PULMONARY DISEASE N GOUT N SLEEP DISORDER N ALZHEIMER'S DISEASE N Brain Problems N HERPES N DEMENTIA N HEADACHES/MIGRAINES N SEIZURES/EPILEPSY N VASCULAR DISEASE N PACEMAKER N Blood Disorder N DIZZINESS Y HEART DISEASE/HEART PROBLEMS N KIDNEY DISEASE N MULTIPLE SCLEROSIS N CARDIAC ARRHYTHMIA N CANCER: SPECIFY Y ANESTHESIA COMPLICATIONS N ATRIAL FIBRILLATION N Gall Stones N PULMONARY EMBOLISM N AUTOIMMUNE DISEASE N Gynecological History Statement/Question Response Date of Last Pap Date of Last Mammogram 10/31/2019 Date of Last Colonoscopy Obstetrics History GPAL:G 0 P 0 0 0 0 Immunizations Vaccine Type Date Status Note Provider Nam e and Address Organization Details Recorded Time Influenza, high-dose, trivalent, PF 8 completed Not Available [facility] 03/13/2023 04:44:20 Influenza, split virus, quadrivalent, preservative 7 completed Not Available [facility] 03/13/2023 04:44:20 COVID-19, mRNA, LNP-S, PF, 30 mcg/0.3 mL dose 1 completed Not Available [facility] 03/13/2023 04:44:20 COVID-19, mRNA, LNP-S, PF, 30 mcg/0.3 mL dose 1 completed Not Available [facility] 03/13/2023 04:44:20 COVID-19, mRNA, LNP-S, PF, 30 mcg/0.3 mL dose 1 completed Not Available [facility] 03/13/2023 04:44:20 Influenza, split virus, trivalent, preservative 0 completed Not Available [facility] 03/13/2023 04:44:20 Influenza, high-dose, quadrivalent, PF 2 completed Not Available [facility] 03/13/2023 04:44:20 Tdap 5 completed Not Available [facility] 03/13/2023 04:44:20 Influenza, high-dose, quadrivalent, PF 4 completed Dania Rosa MD [address] [facility] [address], [place], [address], [facility] 04/23/2023 16:58:29 Past Encounters Encounter ID Performer Location Encounter Start Date Encounter Closed Date Diagnosis/Indication Diagnosis SNOMED-CT Code Diagnosis ICD10 Code Diagnosis Note [id number] [facility] [address] [place] [address] 07/03/2020 00:00:00 07/03/2020 11:12:46 [id number] Dania Rosa MD [facility] Internal Med [facility] [address] [facility] [address] [place] [address] 07/04/2020 00:00:00 07/15/2020 22:36:46 [id number] Negrito Alvarez MD [facility] [address] [place] [address] 10/02/2020 00:00:00 10/02/2020 10:02:58 [id number] Dania Rosa MD [facility] Internal Med [facility] [address] [facility] [address] [place] [address] 11/07/2020 00:00:00 11/10/2020 13:05:21 [id number] Negrito Alvarez MD [facility] [address] [place] [address] 04/30/2021 00:00:00 04/30/2021 11:47:37 [id number] Negrito Alvarez MD [facility] [address] [place] [address] 05/28/2021 00:00:00 05/28/2021 15:53:43 [id number] Negrito Alvarez MD [facility] [place] [address] [place] [address] 06/25/2021 00:00:00 06/25/2021 14:13:57 [id number] Dania Rosa MD [facility] Internal Med [facility] [address] [address] 07/03/2021 00:00:00 07/03/2021 23:31:50 [id number] Negrito Alvarez MD [facility] [address] [place] [address] 08/06/2021 00:00:00 08/06/2021 14:06:03 [id number] Negrito Alvarez MD [facility] [address] [place] [address] 11/12/2021 00:00:00 11/12/2021 09:08:56 [id number] Dania Rosa MD [facility] Internal Med [facility] [address] [address] 02/24/2022 00:00:00 02/24/2022 20:10:34 [id number] Dania Rosa MD [facility] Internal Med [facility] [address] [address] 08/18/2022 10:46:46 08/18/2022 11:49:37 Adult health examination 947889592 Z00.00 Screening for disorder 414917420 Z13.9 Essential hypertension 59746925 I10 Vitamin D deficiency 347 35970 E55.9 Chronic sinusitis 867079 00 J32.9 Gastroesop hageal reflux disease without esophagitis 786983507 K21.9 Anxiety 52425586 F41.9 [id number] Dania Rosa MD [facility] Internal Med [facility] [address] [address] 02/23/2023 14:47:26 02/23/2023 16:21:38 Gastroesophageal reflux disease without esophagitis 751401410 K21.9 Vitamin D deficiency 347 53769 E55.9 Anxiety 60348890 F41.9 Essential hypertension 46207230 I10 Pure hypercholesterolemia 492737532 E78.00 [id number] Dania Rosa MD [facility] Internal Med [facility] [address] [address] 04/23/2023 14:34:01 04/23/2023 15:05:04 Vertigo 674086961 R42 Administra tion of influenza vaccine 46992187 Z23 Health Concerns Section Related Observation LastModified by Organization Detai ls LastModified Time None Recorded Concern Status LastModified by Organization Details LastModified Time None Recorded Advance Directives Directive Y: Patient declined to provi de copy for chart. Payers Insurance Date Sequence Insurance Name Policy Number Policy Jones Covered Member ID Jones Member ID Guarantor Name 04/23/2023 1 [place] F L Forister [id number] F Chacha Forister 05/22/2023 2 [employer] [place] (MEDICARE SUPPLEMENT) F L Forister [id number] F Chacha Forister 04/23/2023 [employer] - D[employer] ASSIGNED ([facility]) F L Forister [id number] F Chacha Forister Notes Date Note Type Note Provider Name and Address Organization Details Recorded Time 3 text/html Anxiety stable on citalopramHypertension no headache or dizziness blood pressure 124/84Hyperlipidemia does try to follow low-fat diet she is taking her rosuvastatinOsteopenia pays attention to bone healthDeveloping a sinus infection on top of her chronic rhinitisGERD no nausea vomiting or heartburn Dania Rosa MD [address], [place], [address], [facility] 08/24/2022 12:33:44 3 text/html Anxiety stable on citalopramHypertension no headache or dizziness blood pressure 124/84Hyperlipidemia does try to follow low-fat diet she is taking her rosuvastatinOsteopenia pays attention to bone healthSome pain in left biceps areaGERD no nausea vomiting or heartburn Dania Rosa MD [address], [place], [address], [facility] 02/23/2023 20:40:06 4 text/html She has had several episodes of vertigo last summer and now over the last few days she is having and again no ringing in her ears no headache no blurred vision no unilateral numbness tingling weakness. No head trauma. Worse when she lies down and turns her head to the left. No palpitations or cardiac complaints Dania Rosa MD [address] [facility] [facility] [address], [place], [address], [facility] 04/23/2023 16:58:33 OBGyn Episode No OBEpisode recorded.
[2024-10-19 12:25] LABS: Estimated Glomerular Filt Rate > 60
== END 2024-10-19 11:38 | disposition home or self-care (01) ==
PROVIDERS: PCP Internal Medicine; Visit Provider Internal Medicine
DX: R06.02 Shortness of breath (principal)
CPT/HCPCS: 71275; Q9967

== ENCOUNTER 2024-11-26 13:14 | Emergency (ER) | payer MEDICARE, OTHER, SELFPAY ==
--- NOTE | 2024-11-26 14:13 | ED.SKABFB ---
HPI - Skin/Abscess/Foreign Bdy General Chief complaint: Skin/Abscess/Foreign Body Stated complaint: rash on face Time Seen by Provider: 11/26/24 13:25 Source: patient and RN notes reviewed Mode of arrival: ambulatory Limitations: no limitations History of Present Illness HPI narrative: 74-year-old female presents Express Care complaining of rash her face for the last 2 days. She recently was doing yd work blue she mind again and some type of poison gerri or sumac. Patient reports a rash to the lower part of her left and right face. She reports that is pruritic. Patient any swelling of her eyelids, vision problems, chest pain, shortness of breath, wheezing, nausea, vomiting, the swelling to the face, throat, tongue, or neck. Patient is tried hydrocortisone cream and antihistamines without relief. Related Data Home Medications ?Medication ?Instructions ?Recorded ?Confirmed ?Last Taken ?Type ascorbic acid (vitamin C) 500 mg 500 mg PO DAILY 07/20/23 08/06/23 08/02/23 History tablet calcium 600 mg capsule 600 mg PO DAILY 07/20/23 08/06/23 08/02/23 History cetirizine 10 mg tablet (Zyrtec) 10 mg PO DAILY 07/20/23 08/06/23 08/03/23 History cholecalciferol (vitamin D3) 50 50 mcg PO DAILY 07/20/23 08/06/23 08/03/23 History mcg (2,000 unit) tablet citalopram 20 mg tablet 20 mg PO DAILY 07/20/23 08/06/23 08/05/23 History lisinopril 10 mg tablet 10 mg PO DAILY 07/20/23 08/06/23 08/05/23 History montelukast 10 mg tablet 10 mg PO DAILY 07/20/23 08/06/23 08/05/23 History multivitamin with minerals-folic 1 tablet PO DAILY 07/20/23 08/06/23 08/02/23 History acid 0.4 mg tablet rosuvastatin 20 mg tablet 20 mg PO DAILY 07/20/23 08/06/23 08/05/23 History turmeric 400 mg capsule 400 mg PO DAILY 07/20/23 08/06/23 08/03/23 History omeprazole 20 mg capsule,delayed 20 mg PO DAILY 07/21/23 08/06/23 08/03/23 History release Allergies Allergy/AdvReac Type Severity Reaction Status Date / Time No Known Allergies Allergy Verified 11/26/24 13:27 Review of Systems Review of Systems: CONSTITUTIONAL: Denies fever, chills, or sweats. EYES: Denies visual changes, redness, or discharge. ENT: Denies rhinorrhea, congestion, sore throat, or otalgia. CARDIOVASCULAR: Denies chest pain, palpitations, or edema. RESPIRATORY: Denies cough or dyspnea. GASTROINTESTINAL: Denies abdominal pain, nausea, vomiting, or diarrhea. GENITOURINARY: Denies dysuria or hematuria. SKIN: Positive for rash and itching. MUSCULOSKELETAL: Denies back pain, joint pain, or myalgia. NEUROLOGIC: Denies headache, numbness, or weakness. PSYCHIATRIC: Denies anxiety or depression. All other systems reviewed are negative, except as documented in HPI. PMFSH Social History Social History Smoking status: Never smoker Alcohol intake: current Alcohol use details: rarely Substance use: never Substance use type: does not use Living arrangements: with family Spiritual care concerns: No Comments At the time of my signature, I reviewed and agree with the nursing past medical, surgical, social, and family history. There is no relevant family history pertinent to the patient complaint. Exam Narrative: GENERAL: This is a well-nourished, well-developed adult, in no apparent distress. They are non ill-appearing, nontoxic appearing. HEAD: normocephalic, atraumatic. EYES: Sclera clear/white. Conjunctiva normal. Vision is grossly intact. Extraocular movements intact EARS: External ears normal,Hearing grossly intact. NOSE: External nose normal THROAT: Mucous membranes moist, NECK: Neck supple CARDIOVASCULAR: Regular rate and rhythm RESPIRATORY: Respiratory rate normal, respiratory effort nonlabored, no respiratory distress SKIN: Erythematous macular papular rash the patient's right and left lower mandibles. Rash is larger on the left than right. Rashes nontender to palpate the pruritic. No area of fluctuance, no induration, exudate. NEURO: awake, alert, and oriented to person, place and time. There were no obvious focal neurologic abnormalities. EXTREMITIES: No joint tenderness, effusion, or edema noted. Course Course Emergency Course: Portions of this record may have been created with voice recognition software Level of Care: Express Care Visit Vital Signs Vital signs: Reviewed MDM - Skin/Abscess/Foreign Bdy MDM Narrative Medical decision making narrative: Patient likely has contact dermatitis. Since it is on her face will go ahead and treat her with oral prednisone. Discussed physical exam findings. Advised supportive measures and signs/symptoms to go to the ER. Pt is appropriate for outpt treatment and f/u. Differential Diagnosis Differential diagnosis: Likely cellulitis, eczema and contact dermatitis Critical Care Time Critical Care Time Critical Care Time: No Discharge Plan Discharge Clinical Impression: Contact dermatitis Qualifiers: Contact dermatitis type: unspecified Contact dermatitis trigger: unspecified trigger Qualified Code(s): L25.9 - Unspecified contact dermatitis, unspecified cause Patient Disposition: Home Condition: Stable Instructions: Antibiotic Form, Contact Dermatitis (ED) Additional Instructions: Take the prednisone as directed. Take it in the morning and take it with food. You may use calamine lotion, camphor, hydrocortisone cream, Benadryl cream as needed for itchiness symptoms. Benadryl cream may irritate your skin. Do not use hydrocortisone face from long 1 week. You may also take Zyrtec or Claritin as needed for allergy or itchiness symptoms. Follow-up PCP in 3-5 days. If you develop any worsening redness, swelling, discharge, fevers, breathing problems, or any other concerns please go to the ER immediately. Patient Language: Ug[place] Prescriptions: New prednisone 20 mg tablet 40 mg PO DAILY 5 Days Qty: 10 0RF No Action cetirizine [Zyrtec] 10 mg Tablet 10 mg PO DAILY citalopram 20 mg Tablet 20 mg PO DAILY lisinopril 10 mg Tablet 10 mg PO DAILY montelukast 10 mg Tablet 10 mg PO DAILY rosuvastatin 20 mg Tablet 20 mg PO DAILY calcium 600 mg Capsule 600 mg PO DAILY ascorbic acid (vitamin C) 500 mg Tablet 500 mg PO DAILY multivit with min-folic acid [Adult One Daily Multivitamin] 0.4 mg Tablet 1 tablet PO DAILY cholecalciferol (vitamin D3) 50 mcg (2,000 unit) Tablet 50 mcg PO DAILY turmeric 400 mg Capsule 400 mg PO DAILY omeprazole [Prilosec] 20 mg Capsule,Delayed Release(Dr/Ec) 20 mg PO DAILY Follow-up/Referrals: Moe,MD Raghav [Primary Care Provider] - Time of Disposition: 13:45
== END 2024-11-26 13:51 | disposition home or self-care (01) ==
PROVIDERS: PCP Internal Medicine
DX: L25.9 Unspecified contact dermatitis, unspecified cause (principal); I10 Essential (primary) hypertension; E78.00 Pure hypercholesterolemia, unspecified; F32.A Depression, unspecified; Z85.028 Personal history of other malignant neoplasm of stomach; Z92.21 Personal history of antineoplastic chemotherapy
CPT/HCPCS: 99213; G0463

== ENCOUNTER 2025-02-22 09:19 | Outpatient (CLI) | payer MEDICARE, OTHER, SELFPAY ==
[2025-02-22 09:54] LABS: Add Urine Microscopic? YES; Appearance Urine Clear (Clear); Glucose Urine UA Negative (Negative); Leukocyte Esterase Ur 1+ LEU/UL (Negative); Nitrate Urine Negative (Negative); Non Pathogenic Casts 0-2; Specific Grav Ur 1.021 (1.001-1.035)
[2025-02-22 09:58] LABS: Hematocrit 42.7 % (37.0-47.0); Hemoglobin 13.7 g/dL (12.0-15.0); Immature Granulocyte Percent A 0.2 % (0-0.5); Lymphocytes Absolute Auto 1.90 K/mm3 (0.9-3.2); Mean Corpuscular HGB Conc 32.1 g/dl (32-36); Mean Corpuscular Hemoglobin 29.4 pg (26-34); Mean Corpuscular Volume 91.6 fl (80-100); Nucleated Red Blood Cells Absolute Auto 0.000 K/mm3 (0.0-0.012); Nucleated Red Blood Cells Perc 0.0 % (0.0-0.2); Platelet Count Result 291 k/mm3 (150-375); Red Blood Count 4.66 M/mm3 (4.2-5.4); White Blood Count 6.3 K/mm3 (4.5-10.0)
--- OUTSIDE RECORDS SUMMARY | 2025-02-22 10:05 | XMS_ITS | Data Portability ---
Author Organization [facility], Main Office Address [address] [place] [address] Care Team Providers Care Retail Analyst Name Role Phone DANIA ROSA Primary Care Provider DANIA ROSA Referring Provider [phone] NONE, NONE Referring Provider Unavailable Assessment Encounter Date Assessment Date Assessment LastModified by Organization Details LastModified Time 08/18/2022 08/18/2022 Wellness completed Blood work ordered Antibiotics for sinusitis Push fluids continue current therapy Diagnosis assessment plan discussed [email or web address] Not available 08/24/2022 12:33:10 02/23/2023 02/23/2023 Continue current therapy x-ray her left humerus does not want to pursue anything else about that right now will follow-up with me in 4 months continue current therapy diagnosis in the assessment and plan have been discussed [email or web address] Not available 02/23/2023 20:39:43 04/23/2023 04/23/2023 Ear drops Vestibular therapy Valium 5 mg 1/2 tablet p.o. b.i.d. x2 weeks for vestibular suppression Follow-up if not improved or call back sooner if symptoms worsen [email or web address] Not available 04/23/2023 16:57:56 Plan of Treatment Reminders Order Date Submit Date Provider Last Modified By Organization Details Last Modified Time Details Appointments None recorded. Lab vitamin D, 25-hydroxy, total, serum 2022 023 cyl [facility] (Lab), [address] [place], [address], 10:28:33 T3, free, serum or plasma 2022 023 [facility] (Lab), [address] [place], [address], 3 15:51:21 T4, free, serum [address] (Lab), [address] [place], [address], 3 15:51:21 TSH, serum or plasma [address] (Lab), [address] [place], [address], 3 15:51:21 CBC w/ auto diff [address] (Lab), [address] [place], [address], 3 15:51:21 lipid panel, serum 2022 023 [facility] (Lab), [address] [place], [address], 3 11:57:54 CMP, serum or plasma [address] (Lab), [address] [place], [address], 3 15:51:21 Referral vestibular therapy referral 2023 024 [email or web address] 25 [facility], [address] [facility], [place], [address], 4 12:29:54 Procedures None recorded. Surgeries None recorded. Imaging None recorded. Medication Orders Valium 5 mg tablet 2023 024 [facility] #[id number], [address], [place], [address], 4 16:58:33 cefuroxime axetil 500 mg tablet 2022 023 [email or web address] [id number], [address], [place], [address], 15:09:31 Patient TargetsNo targets recorded. Patient Instructions Encounter Date Encounter Id Patient Instructions Last Modified By Organization Details Last Modified Time 08/18/2022 [id number] dementia rating scale-2* Not available 08/18/2022 15:51:21 alcohol misuse* Not available 08/18/2022 15:51:21 depression screening* [email or web address] Not available 08/18/2022 15:51:21 multi-dimensiona l health assessment questionnaire* [email or web address] Not available 08/18/2022 15:51:21 Personalized Hea lth [...] cient : 30-10 0 ng/mL Not Available [facility] (Lab) [address] [place], [address], 12/03/2021 17:06:11 08/19/19 23 08/18/2022 CBC/C OMPLE TE BLD COUNT W/DIF F white blood cells 8.1 x10'3 /uL 4.2-10 .8 Not Available [facility] (Lab) [address] [place], [address], 08/18/2022 13:49:39 08/19/19 23 08/18/2022 CBC/C OMPLE TE BLD COUNT W/DIF F red blood cells 4.64 x10'6 /uL 3.80-5 .20 Not Available [facility] (Lab) [address] [place], [address], 08/18/2022 13:49:39 08/19/19 23 08/18/2022 CBC/C OMPLE TE BLD COUNT W/DIF F hemoglobin 13.5 g/dL 12.0-1 5.6 Not Available [facility] (Lab) [address] [place], [address], 08/18/2022 13:49:39 08/19/19 23 08/18/2022 CBC/C OMPLE TE BLD COUNT W/DIF F hematocrit 42.0 % 35.7-4 5.7 Not Available [facility] (Lab) [address] [place], [address], 08/18/2022 13:49:39 08/19/19 23 08/18/2022 CBC/C OMPLE TE BLD COUNT W/DIF F mean red cell volume 90.5 fL 82.0-9 9.0 Not Available [facility] (Lab) [address] [place], [address], 08/18/2022 13:49:39 08/19/19 23 08/18/2022 CBC/C OMPLE TE BLD COUNT W/DIF F mean red cell hemoglobin 29.1 pg 27.0-3 3.0 Not Available [facility] (Lab) [address] [place], [address], 08/18/2022 13:49:39 08/19/19 23 08/18/2022 CBC/C OMPLE TE BLD COUNT W/DIF F mean RBC HGB concentratio n 32.1 g/dL 31.0-3 6.0 Not Available [facility] (Lab) [address] [place], [address], 08/18/2022 13:49:39 08/19/19 23 08/18/2022 CBC/C OMPLE TE BLD COUNT W/DIF F red cell distribution width 13.5 % 11.8-1 5.5 Not Available [facility] (Lab) [address] [place], [address], 08/18/2022 13:49:39 08/19/19 23 08/18/2022 CBC/C OMPLE TE BLD COUNT W/DIF F platelets 304 x10'3 /uL 150-40 0 Not Available [facility] (Lab) [address] [place], [address], 08/18/2022 13:49:39 08/19/19 23 08/18/2022 CBC/C OMPLE TE BLD COUNT W/DIF F mean platelet volume 9.7 fL 9.0-12 .4 Not Available [facility] (Lab) [address] [place], [address], 08/18/2022 13:49:39 08/19/19 23 08/18/2022 CBC/C OMPLE TE BLD COUNT W/DIF F neutrophils 70.5 % 39.0-7 2.0 Not Available [facility] (Lab) [address] [place], [address], 08/18/2022 13:49:39 08/19/19 23 08/18/2022 CBC/C OMPLE TE BLD COUNT W/DIF F lymphocytes 19.1 % 16.0-4 7.0 Not Available [facility] (Lab) [address] [place], [address], 08/18/2022 13:49:39 08/19/19 23 08/18/2022 CBC/C OMPLE TE BLD COUNT W/DIF F monocytes 7.4 % 5.0-12 .0 Not Available [facility] (Lab) [address] [place], [address], 08/18/2022 13:49:39 08/19/19 23 08/18/2022 CBC/C OMPLE TE BLD COUNT W/DIF F eosinophils 2.2 % 1.0-7. 0 Not Available [facility] (Lab) [address] [place], [address], 08/18/2022 13:49:39 08/19/19 23 08/18/2022 CBC/C OMPLE TE BLD COUNT W/DIF F basophils 0.4 % 0.0-2. 0 Not Available [facility] (Lab) [address] [place], [address], 08/18/2022 13:49:39 08/19/19 23 08/18/2022 CBC/C OMPLE TE BLD COUNT W/DIF F immature granulocytes 0.4 % 0.00-0 .50 Not Available [facility] (Lab) [address] [place], [address], 08/18/2022 13:49:39 08/19/1908/18/2022 CBC/C OMPLE TE BLD COUNT W/DIF F neutrophils, absolute count 5.69 x10'3 /uL 1.5-8. 0 Not Available [facility] (Lab) [address] [place], [address], 08/18/2022 13:49:39 08/19/19 23 08/18/2022 CBC/C OMPLE TE BLD COUNT W/DIF F lymphocytes, absolute count 1.54 x10'3 /uL 1.07-3 .43 Not Available [facility] (Lab) [address] [place], [address], 08/18/2022 13:49:39 08/19/1908/18/2022 CBC/C OMPLE TE BLD COUNT W/DIF F monocytes, absolute count 0.60 x10'3 /uL 0.29-0 .99 Not Available [facility] (Lab) [address] [place], [address], 08/18/2022 13:49:39 08/19/1908/18/2022 CBC/C OMPLE TE BLD COUNT W/DIF F eosinophils, absolute count 0.18 x10'3 /uL 0.02-0 .53 Not Available [facility] (Lab) [address] [place], [address], 08/18/2022 13:49:39 08/19/1908/18/2022 CBC/C OMPLE TE BLD COUNT W/DIF F basophils, absolute count 0.03 x10'3 /uL 0.01-0 .08 Not Available [facility] (Lab) [address] [place], [address], 08/18/2022 13:49:39 08/19/19 23 08/18/2022 CBC/C OMPLE TE BLD COUNT W/DIF F immature granulocytes ,absolute 0.03 x10'3 /uL 0.00-0 .05 Not Available [facility] (Lab) [address] [place], [address], 08/18/2022 13:49:39 08/19/19 23 08/18/2022 CBC/C OMPLE TE BLD COUNT W/DIF F nucleated red blood cells 0.0 % -0 Not Available [facility] (Lab) [address] [place], [address], 08/18/2022 13:49:39 08/19/19 23 08/18/2022 CBC/C OMPLE TE BLD COUNT W/DIF F NRBC# 0.00 x10'3 /uL Not Available [facility] (Lab) [address] [place], [address], 08/18/2022 13:49:39 08/19/19 23 08/18/2022 COMPR EHENS MITCHEL METAB OLIC PANEL sodium 137 mmol/ L 137-14 5 Not Available [facility] (Lab) [address] [place], [address], 08/18/2022 14:31:04 08/19/19 23 08/18/2022 COMPR EHENS MITCHEL METAB OLIC PANEL potassium 4.2 mmol/ L 3.5-5. 1 Not Available [facility] (Lab) [address] [place], [address], 08/18/2022 14:31:04 08/19/19 23 08/18/2022 COMPR EHENS MITCHEL METAB OLIC PANEL chloride 102 mmol/ L 98-107 Not Available [facility] (Lab) [address] [place], [address], 08/18/2022 14:31:04 08/19/19 23 08/18/2022 COMPR EHENS MITCHEL METAB OLIC PANEL carbon dioxide 29 mmol/ L 22-30 Not Available [facility] (Lab) [address] [place], [address], 08/18/2022 14:31:04 08/19/19 23 08/18/2022 COMPR EHENS MITCHEL METAB OLIC PANEL anion gap 10.2 mmol/ L 14-22 low Not Available [facility] (Lab) [address] [place], [address], 08/18/2022 14:31:04 08/19/19 23 08/18/2022 COMPR EHENS MITCHEL METAB OLIC PANEL glucose 93 mg/dL 70-99 Not Available [facility] (Lab) [address] [place], [address], 08/18/2022 14:31:04 08/19/19 23 08/18/2022 COMPR EHENS MITCHEL METAB OLIC PANEL BUN 15 mg/dL 8-19 Not Available [facility] (Lab) [address] [place], [address], 08/18/2022 14:31:04 08/19/19 23 08/18/2022 COMPR EHENS MITCHEL METAB OLIC PANEL creatinine 0.68 mg/dL 0.66-1 .25 Not Available [facility] (Lab) [address] [place], [address], 08/18/2022 14:31:04 08/19/19 23 08/18/2022 COMPR EHENS MITCHEL METAB OLIC PANEL GFR >60 Refer ence Range : [place] Daniel ge GFR Healt hy Adult : >60 [...] Hispa nics. Outsi de the valid ated alvern eters , estim ated GFR is less [...] calcu lator is avail able on the [facility] websi te: https :[email or web address] ellison.rose alex.o viviana/pr ofess ional s/kdo qi/gf r_cal culat or Not Available [facility] (Lab) [address] [place], [address], 08/18/2022 14:31:04 08/19/19 23 08/18/2022 COMPR EHENS MITCHEL METAB OLIC PANEL alkaline phosphatase 75 U/L 38-126 Not Available [facility] (Lab) [address] [place], [address], 08/18/2022 14:31:04 08/19/19 23 08/18/2022 COMPR EHENS MITCHEL METAB OLIC PANEL alanine aminotransfe rase 19 U/L 0-35 Not Available [facility] (Lab) [address] [place], [address], 08/18/2022 14:31:04 08/19/19 23 08/18/2022 COMPR EHENS MITCHEL METAB OLIC PANEL aspartate aminotransfe rase 64 U/L 15-37 high Not Available [facility] (Lab) [address] [place], [address], 08/18/2022 14:31:04 08/19/19 23 08/18/2022 COMPR EHENS MITCHEL METAB OLIC PANEL bilirubin, total 0.40 mg/dL 0.20-1 .30 Not Available [facility] (Lab) [address] [place], [address], 08/18/2022 14:31:04 08/19/19 23 08/18/2022 COMPR EHENS MITCHEL METAB OLIC PANEL calcium 9.6 mg/dL 8.4-10 .2 Not Available [facility] (Lab) [address] [place], [address], 08/18/2022 14:31:04 08/19/19 23 08/18/2022 COMPR EHENS MITCHEL METAB OLIC PANEL total protein 6.8 g/dL 6.3-8. 2 Not Available [facility] (Lab) [address] [place], [address], 08/18/2022 14:31:04 08/19/19 23 08/18/2022 COMPR EHENS MITCHEL METAB OLIC PANEL albumin 4.1 g/dL 3.0-4. 4 Not Available [facility] (Lab) [address] [place], [address], 08/18/2022 14:31:04 08/19/19 23 08/18/2022 COMPR EHENS MITCHEL METAB OLIC PANEL globulin 2.7 g/dL 2.6-4. 2 Not Available [facility] (Lab) [address] [place], [address], 08/18/2022 14:31:04 08/19/19 23 08/18/2022 COMPR EHENS MITCHEL METAB OLIC PANEL A/G ratio 1.5 ratio 1.0-2. 0 Not Available [facility] (Lab) [address] [place], [address], 08/18/2022 14:31:04 08/19/19 23 08/18/2022 VITAM IN D 25-HY DROXY [id number] 80.9 NG/mL 30-100 Vitam in D Statu s: Defic ient: <20 ng/mL Insuf ficie nt: 20-29 ng/mL Suffi cient : 30-10 0 ng/mL Not Available [facility] (Lab) [address] [place], [address], 08/18/2022 14:39:26 08/19/19 23 08/18/2022 T3 FREE free T3 2.5 pg/mL 2.77-5 .27 low Not Available [facility] (Lab) [address] [place], [address], 08/18/2022 15:12:14 08/19/19 23 08/18/2022 T4 FREE free T4 1.12 NG/dL 0.78-2 .19 Not Available [facility] (Lab) [address] [place], [address], 08/18/2022 15:12:16 08/19/19 23 08/18/2022 TSH thyroid-stim ulating hormone 0.948 uIU/m L 0.465- 4.680 Not Available [facility] (Lab) [address] [place], [address], 08/18/2022 15:23:46 02/24/20 23 02/23/2023 CBC/C OMPLE TE BLD COUNT W/DIF F white blood cells 9.2 x10'3 /uL 4.2-10 .8 Not Available [facility] (Lab) [address] [place], [address], 02/23/2023 17:57:44 02/24/20 23 02/23/2023 CBC/C OMPLE TE BLD COUNT W/DIF F red blood cells 4.63 x10'6 /uL 3.80-5 .20 Not Available [facility] (Lab) [address] [place], [address], 02/23/2023 17:57:44 02/24/20 23 02/23/2023 CBC/C OMPLE TE BLD COUNT W/DIF F hemoglobin 14.0 g/dL 12.0-1 5.6 Not Available [facility] (Lab) [address] [place], [address], 02/23/2023 17:57:44 02/24/20 23 02/23/2023 CBC/C OMPLE TE BLD COUNT W/DIF F hematocrit 43.1 % 35.7-4 5.7 Not Available [facility] (Lab) [address] [place], [address], 02/23/2023 17:57:44 02/24/20 23 02/23/2023 CBC/C OMPLE TE BLD COUNT W/DIF F mean red cell volume 93.1 fL 82.0-9 9.0 Not Available [facility] (Lab) [address] [place], [address], 02/23/2023 17:57:44 02/24/20 23 02/23/2023 CBC/C OMPLE TE BLD COUNT W/DIF F mean red cell hemoglobin 30.2 pg 27.0-3 3.0 Not Available [facility] (Lab) [address] [place], [address], 02/23/2023 17:57:44 02/24/20 23 02/23/2023 CBC/C OMPLE TE BLD COUNT W/DIF F mean RBC HGB concentratio n 32.5 g/dL 31.0-3 6.0 Not Available [facility] (Lab) [address] [place], [address], 02/23/2023 17:57:44 02/24/20 23 02/23/2023 CBC/C OMPLE TE BLD COUNT W/DIF F red cell distribution width 14.0 % 11.8-1 5.5 Not Available [facility] (Lab) [address] [place], [address], 02/23/2023 17:57:44 02/24/2002/23/2023 CBC/C OMPLE TE BLD COUNT W/DIF F platelets 312 x10'3 /uL 150-40 0 Not Available [facility] (Lab) [address] [place], [address], 02/23/2023 17:57:44 02/24/20 23 02/23/2023 CBC/C OMPLE TE BLD COUNT W/DIF F mean platelet volume 10.2 fL 9.0-12 .4 Not Available [facility] (Lab) [address] [place], [address], 02/23/2023 17:57:44 02/24/2002/23/2023 CBC/C OMPLE TE BLD COUNT W/DIF F neutrophils 61.5 % 39.0-7 2.0 Not Available [facility] (Lab) [address] [place], [address], 02/23/2023 17:57:44 02/24/2002/23/2023 CBC/C OMPLE TE BLD COUNT W/DIF F lymphocytes 26.4 % 16.0-4 7.0 Not Available [facility] (Lab) [address] [place], [address], 02/23/2023 17:57:44 02/24/20 23 02/23/2023 CBC/C OMPLE TE BLD COUNT W/DIF F monocytes 9.1 % 5.0-12 .0 Not Available [facility] (Lab) [address] [place], [address], 02/23/2023 17:57:44 02/24/20 23 02/23/2023 CBC/C OMPLE TE BLD COUNT W/DIF F eosinophils 2.2 % 1.0-7. 0 Not Available [facility] (Lab) [address] [place], [address], 02/23/2023 17:57:44 11/06/02/23/2023 CBC/C OMPLE TE BLD COUNT W/DIF F basophils 0.4 % 0.0-2. 0 Not Available [facility] (Lab) [address] [place], [address], 02/23/2023 17:57:44 02/24/20 23 02/23/2023 CBC/C OMPLE TE BLD COUNT W/DIF F immature granulocytes 0.4 % 0.00-0 .50 Not Available [facility] (Lab) [address] [place], [address], 02/23/2023 17:57:44 02/24/20 23 02/23/2023 CBC/C OMPLE TE BLD COUNT W/DIF F neutrophils, absolute count 5.64 x10'3 /uL 1.5-8. 0 Not Available [facility] (Lab) [address] [place], [address], 02/23/2023 17:57:44 02/24/20 23 02/23/2023 CBC/C OMPLE TE BLD COUNT W/DIF F lymphocytes, absolute count 2.42 x10'3 /uL 1.07-3 .43 Not Available [facility] (Lab) [address] [place], [address], 02/23/2023 17:57:44 02/24/20 23 02/23/2023 CBC/C OMPLE TE BLD COUNT W/DIF F monocytes, absolute count 0.83 x10'3 /uL 0.29-0 .99 Not Available [facility] (Lab) [address] [place], [address], 02/23/2023 17:57:44 02/24/20 23 02/23/2023 CBC/C OMPLE TE BLD COUNT W/DIF F eosinophils, absolute count 0.20 x10'3 /uL 0.02-0 .53 Not Available [facility] (Lab) [address] [place], [address], 02/23/2023 17:57:44 02/24/20 23 02/23/2023 CBC/C OMPLE TE BLD COUNT W/DIF F basophils, absolute count 0.04 x10'3 /uL 0.01-0 .08 Not Available [facility] (Lab) [address] [place], [address], 02/23/2023 17:57:44 02/24/20 23 02/23/2023 CBC/C OMPLE TE BLD COUNT W/DIF F immature granulocytes ,absolute 0.04 x10'3 /uL 0.00-0 .05 Not Available [facility] (Lab) [address] [place], [address], 02/23/2023 17:57:44 02/24/20 23 02/23/2023 CBC/C OMPLE TE BLD COUNT W/DIF F nucleated red blood cells 0.0 % -0 Not Available [facility] (Lab) [address] [place], [address], 02/23/2023 17:57:44 02/24/20 23 02/23/2023 CBC/C OMPLE TE BLD COUNT W/DIF F NRBC# 0.00 x10'3 /uL Not Available [facility] (Lab) [address] [place], [address], 02/23/2023 17:57:44 02/24/20 23 02/23/2023 COMPR EHENS MITCHEL METAB OLIC PANEL sodium 138 mmol/ L 137-14 5 Not Available [facility] (Lab) [address] [place], [address], 02/23/2023 18:26:39 02/24/20 23 02/23/2023 COMPR EHENS MITCHEL METAB OLIC PANEL potassium 4.3 mmol/ L 3.5-5. 1 Not Available [facility] (Lab) [address] [place], [address], 02/23/2023 18:26:39 02/24/20 23 02/23/2023 COMPR EHENS MITCHEL METAB OLIC PANEL chloride 100 mmol/ L 98-107 Not Available [facility] (Lab) [address] [place], [address], 02/23/2023 18:26:39 02/24/20 23 02/23/2023 COMPR EHENS MITCHEL METAB OLIC PANEL carbon dioxide 32 mmol/ L 22-30 high Not Available [facility] (Lab) [address] [place], [address], 02/23/2023 18:26:39 02/24/20 23 02/23/2023 COMPR EHENS MITCHEL METAB OLIC PANEL anion gap 10.3 mmol/ L 14-22 low Not Available [facility] (Lab) [address] [place], [address], 02/23/2023 18:26:39 02/24/20 23 02/23/2023 COMPR EHENS MITCHEL METAB OLIC PANEL glucose 96 mg/dL 70-99 Not Available [facility] (Lab) [address] [place], [address], 02/23/2023 18:26:39 02/24/20 23 02/23/2023 COMPR EHENS MITCHEL METAB OLIC PANEL BUN 14 mg/dL 8-19 Not Available [facility] (Lab) [address] [place], [address], 02/23/2023 18:26:39 02/24/20 23 02/23/2023 COMPR EHENS MITCHEL METAB OLIC PANEL creatinine 0.72 mg/dL 0.66-1 .25 Not Available [facility] (Lab) [address] [place], [address], 02/23/2023 18:26:39 02/24/20 23 02/23/2023 COMPR EHENS MITCHEL METAB OLIC PANEL GFR >60 Refer ence Range : [place] Daniel ge GFR Healt hy Adult : >60 [...] calcu lator is avail able on the [facility] websi te: https :[email or web address] w.rose alex.o viviana/pr ofess ional s/kdo qi/gf r_cal culat or Not Available [facility] (Lab) [address] [place], [address], 02/23/2023 18:26:39 02/24/20 23 02/23/2023 COMPR EHENS MITCHEL METAB OLIC PANEL alkaline phosphatase 81 U/L 38-126 Not Available [facility] (Lab) [address] [place], [address], 02/23/2023 18:26:39 02/24/20 23 02/23/2023 COMPR EHENS MITCHEL METAB OLIC PANEL alanine aminotransfe rase 25 U/L 0-35 Not Available [facility] (Lab) [address] [place], [address], 02/23/2023 18:26:39 02/24/20 23 02/23/2023 COMPR EHENS MITCHEL METAB OLIC PANEL aspartate aminotransfe rase 74 U/L 15-37 high Not Available [facility] (Lab) [address] [place], [address], 02/23/2023 18:26:39 02/24/20 23 02/23/2023 COMPR EHENS MITCHEL METAB OLIC PANEL bilirubin, total 0.50 mg/dL 0.20-1 .30 Not Available [facility] (Lab) [address] [place], [address], 02/23/2023 18:26:39 02/24/20 23 02/23/2023 COMPR EHENS MITCHEL METAB OLIC PANEL calcium 10.1 mg/dL 8.4-10 .2 Not Available [facility] (Lab) [address] [place], [address], 02/23/2023 18:26:39 02/24/20 23 02/23/2023 COMPR EHENS MITCHEL METAB OLIC PANEL total protein 7.1 g/dL 6.3-8. 2 Not Available [facility] (Lab) [address] [place], [address], 02/23/2023 18:26:39 02/24/20 23 02/23/2023 COMPR EHENS MITCHEL METAB OLIC PANEL albumin 4.2 g/dL 3.0-4. 4 Not Available [facility] (Lab) [address] [place], [address], 02/23/2023 18:26:39 02/24/20 23 02/23/2023 COMPR EHENS MITCHEL METAB OLIC PANEL globulin 2.9 g/dL 2.6-4. 2 Not Available [facility] (Lab) [address] [place], [address], 02/23/2023 18:26:39 02/24/20 23 02/23/2023 COMPR EHENS MITCHEL METAB OLIC PANEL A/G ratio 1.4 ratio 1.0-2. 0 Not Available [facility] (Lab) [address] [place], [address], 02/23/2023 18:26:39 02/24/20 23 02/23/2023 LIPID PANEL cholesterol 211 mg/dL 140-19 9 high NIH JULIUS NSUS RECOM MENDA TION FOR MOR STERO L: ADULT CHILD LOW RISK: <200 <170 BORDE RLINE : <200- 239 ----- HIGH RISK: >240 >200 Not Available [facility] (Lab) [address] [place], [address], 02/23/2023 18:26:41 02/24/20 23 02/23/2023 LIPID PANEL triglyceride s 187 mg/dL 0-150 high NIH JULIUS NSUS REPOR T RECOM MENDA TION FOR TRIGL YCERI RUKHSANA: ADULT CHILD LOW RISK: <150 ----- BODER LINE: 150-1 99 ----- HIGH RISK: >200 ----- Not Available [facility] (Lab) [address] [place], [address], 02/23/2023 18:26:41 02/24/20 23 02/23/2023 LIPID PANEL HDL cholesterol 69 mg/dL 40- Not Available [facility] (Lab) [address] [place], [address], 02/23/2023 18:26:41 02/24/20 23 02/23/2023 LIPID PANEL [...] WILL NOT BE REPOR KYLE. Not Available [facility] (Lab) [address] [place], [address], 02/23/2023 18:26:41 11/13/19 22 XR, hand, 3 or more view No observ ation record ed. [id number] [address], [place], [address], 06/18/2022 02:37:01 12/04/19 22 12/03/2021 MAMMO , scree antonette, digit al, bilat eral [facility] [address], [place] [address] Gisela xavier Name: CHRISTOPHER MARCOS F L Access ion #: [id number] Sex: F : 1950 3 Locati [...] entire ly fatty. Page 1 of 2 [facility] Gisela xavier Name: CHRISTOPHER MARCOS F L Access ion #: [id number] Sex: F : 1950 3 Exam [...] ed prompt ly to the gisela xavier's [facility] er. A negati ve mammog tara report [...] 3:33 PM (CT) Page 2 of 2 [id number] [facility] (Imaging) [address] [place], [address], 06/18/2022 02:37:01 12/04/19 22 12/03/2021 bone densi ty [facility] [address] [place] [address] Gisela xavier Name: FORBLANKA MARCOS F L Access ion #: [id number] Sex: F : 1950 3 Locati [...] g/cm2 calciu m Page 1 of 2 [facility] Name: Liliya DON Access ion #: [id number] Sex: F : 1950 3 Exam [...] 2:43 PM (CT) Page 2 of 2 [id number] [facility] (Imaging) [address] [place], [address], 06/18/2022 02:37:01 02/24/20 23 02/23/2023 XR, humer us [facility] [address] [place] [address] Patien t Name: Liliya DON Access ion #: [id number] Sex: F : 1950 2 Dictat [...] 2022 16:19: 57 PM Page 1 [email or web address] [facility] (Imaging) [address] [place], [address], 03/25/2023 14:42:05 03/11/20 23 03/11/2023 scree antonette breas t jana, bilat [facility] [address] [facility] [place] [address] Patiyonatan t Name: Liliya DON Access ion #: [id number] Sex: F : 1950 7 Dictat [...] 2022 15:08: 25 PM Page 1 [email or web address] [facility] (Imaging) [address] [place], [address], 03/25/2023 14:42:06 04/01/20 24 04/01/2024 rosalind zayasas t jana, bilat [facility] [address] [facility] [address], [place] [address] Patien t Name: Liliya DON Access ion #: [id number] Sex: F : 1950 9 Dictat [...] annual mammog [place]. Page 1 [facility] [address] [place] [address] Patien t Name: Liliya DON ion #: [id number] Sex: F : 1950 9 Dictat ed By: Mylene Rico Attend ing Physic piedad: KEIKO BEVERLY Orderi Physic piedad: CULLEN ROSA Exam Date: 2023 13:51 PM Exam Name: MG MARTINEZ BREAST JANA BILAT Admitt ing Diagno sis(es ): ASSESS MENT: BIRADS : 1 - Negati ve Electr onical ly Signed by: Mylene Rico at 2023 14:17: 05 PM Page 2 [email or web address] [facility] (Imaging) [address] [place] [address], [address], 05/26/2024 15:40:52 Result Notes Documentation Provider Name and Address Organization Details Recorded Time Mammo, Screening, Digital, Bilateral : [address] [address] Patient Name: Liliya BARR Sex: F : 1950 Location: [facility] Attending Physician: DANIA ROSA Ordering Physician: [...] almost entirely fatty. Page 1 of 2 [facility] Patient Name: Liliya BARR Sex: F : 1950 Exam Date: 12/03/2021 1:39 PM Exam Name: MG BETTSN BREAST JANA BILAT Admitting Diagnosis(es): No masses, asymmetries, suspicious calcifications, or architectural distortion are seen. IMPRESSION: BIRADS 1: Assessment complete. Negative. Recommend annual screening mammography. According to the [employer], yearly mammograms are recommended [...] (CT) Page 2 of 2 Not Available [facility] 06/18/2022 02:37:03 Xr, Humerus : [place] [id number] Patient Name: Liliya BARR Sex: F : [...] acute fracture. Page 1 Stephanie Pagan RN [facility], [facility] [employer] [facility] 03/25/2023 14:42:05 Problems Name Problem SNOMED Code Status Onset Date Resolution Date Notes Provider Name and Address Organization Details Recorded Time Blood glucose outside reference range 247056356 Active Not Available [facility] 3 04:44:19 Intestinal disaccharidas e deficiency 66801914 Active Not Available [facility] 3 04:44:19 Pleuritic pain 5550283 Active Not Available [facility] 3 04:44:19 Pure hypercholeste rolemia 517571732 Active Not Available [facility] 3 04:44:19 Dizziness and giddiness 542653341 Active Not Available [facility] 3 04:44:19 Malignant neoplasm of stomach 003694890 Active Not Available [facility] 3 04:44:19 Diverticular disease of colon 942619313 Active Not Available [facility] 3 04:44:19 Dizziness 328016624 Active Not Available [facility] 3 04:44:19 Pharyngitis 076467297 Active Not Available [facility] 3 04:44:19 Anxiety 53499451 Active Not Available [facility] 3 04:44:19 Cough 18460042 Active Not Available [facility] 3 04:44:19 Essential hypertension 53780570 Active Not Available [facility] 3 04:44:19 Vitamin D deficiency 68369075 Active 2018 Not Available [facility] 3 04:44:19 Carpal tunnel syndrome 99745310 Active 2021 Not Available [facility] 3 04:44:19 Osteoarthrosi s of the carpometacarp al joint of the thumb 48863613 Active 2021 Not Available [facility] 3 04:44:19 Gastroesophag eal reflux disease without esophagitis 323512506 Active 2021 Not Available [facility] 3 04:44:19 Osteopenia 787218425 Active 2021 Not Available [facility] 3 04:44:19 Chronic sinusitis 94044415 Active 2022 Not Available [facility] 3 04:44:19 Pain in left arm 186516560 Active 2022 Not Available [facility] 3 04:44:19 Vertigo 156762102 Active 2023 QUENTIN Ding null, [facility] [employer] [facility] 4 14:57:05 Problem Notes None recorded. Procedures Surgical History Date Name Laterality Status Provider Name and Address Organization Details Recorded Time 08/19/19 Medicare Wellness CPT Code, subsequent completed Hui Howard RN [facility] [employer] [facility] 08/18/2022 11:10:49 procedure on pancreas completed Not Available [facility] 06/18/2022 02:30:41 arthroplasty of joint of the thumb completed Not Available [facility] 06/18/2022 02:30:41 Carpal tunnel completed Not Available [facility] 06/18/2022 02:30:41 section completed Not Available [facility] 06/18/2022 02:30:41 Imaging Results None recorded. Procedure [...] administe red by the provider 06/25 completed [facility]: [id number] Not Available Not Available [...] administe red by the provider 06/25 completed [facility]: [id number] Not Available Not Available [...] Body weight Body temperature Heart rate Systolic And Diastolic Provider Name and Address Organization Details Last Updated DateTime 4 149.86 cm 32.5 kg/m2 21010.3 7 g 100.8 [degF] 92 /min 138/82 mm[Hg] QUENTIN Arrieta [facility] [employer] [facility] 4 14:45:17 Date Recorded Body height Body weight Body temperature Heart rate Oxygen saturation Oxygen saturation in Arterial blood by Pulse oximetry Systolic And Diastolic Provider Name and Address Organization Details Last Updated DateTime 3 149.86 cm 81194.1 5 g 97.4 [degF] 91 /min 97 % 97 % 126/84 mm[Hg] Nery Hollis RN [facility] [employer] [facility] 3 10:57:30 Date Recorded Pain severity - 0-10 verbal numeric rating [Score] - Reported Provider Name and Address Organization Details Last Updated DateTime 08/18/2022 0 Hui Howard RN [facility] [employer] [facility] 08/18/2022 11:10:56 Date Recorded Body mass index (BMI) Body height Pain severity - 0-10 verbal numeric rating [Score] - Reported Body weight Provider Name and Address Organization Details Last Updated DateTime 11/12/2021 32.3 kg/m2 149.86 cm 0 43563.78 g Not Available [facility] 06/18/2022 02:31:34 Date Recorded Body height Body mass index (BMI) Body weight Body temperature Heart rate Systolic And Diastolic Provider Name and Address Organization Details Last Updated DateTime 3 149.86 cm 32.3 kg/m2 41205.7 8 g 98.6 [degF] 103 /min 118/76 mm[Hg] Stephanie delgado RN [place] [facility] [facility] 3 15:11:15 Date Recorded Body mass index (BMI) Body height Heart rate Body temperature Body weight Systolic And Diastolic Provider Name and Address Organization Details Last Updated DateTime 2 33.7 kg/m2 149.86 cm 84 /min 99.4 [degF] 66876.9 3 g 128/78 mm[Hg] Not Available [facility] 3 02:31:30 Social History Question Answer Notes LastModified by Organization Details LastModified Time Tobacco Smoking Status Former Smoker quit 1976 Not Available [facility] 06/18/2022 02:25:35 Do You Have An Advance Directive? Yes Patient Declined To Provide Copy For Chart. MIGRATION.030 [id number] Information not available 06/18/2022 Are You Blind Or Do You Have Difficulty Seeing? No MIGRATION.030 860579 Information not available 06/18/2022 What Is Your Level Of Caffeine Consumption? Moderate MIGRATION.030 934966 Information not available 06/18/2022 How Much Tobacco Do You Chew? None MIGRATION.030 406500 Information not available 06/18/2022 In The 14 Days Before Symptom Onset, Have You Had Close Contact With A Laboratory-confi rmed COVID-19 While That Case Was Ill? No MIGRATION.030 238611 Information not available 06/18/2022 In The 14 Days Before Symptom Onset, Have You Had Close Contact With A Person Who Is Under Investigation For COVID-19 While That Person Was Ill? No MIGRATION.030 161766 Information not available 06/18/2022 Are You Deaf Or Do You Have Serious Difficulty Hearing? Yes Patient Wears Hearing Aids. Information not available 08/18/2022 What Type Of Diet Are You Following? REGULAR MIGRATION.030 225271 Information not available 06/18/2022 Which Illicit Or Recreational Drugs Have You Used? None MIGRATION.030 810895 Information not available 06/18/2022 What Is The Highest Grade Or Level Of School You Have Completed Or The Highest Degree You Have Received? [id number] MIGRATION.0301 313661 Information not available 06/18/2022 Have There Been Any Changes To Your Family Or Social Situation? No MIGRATION.0301 611366 Information not available 06/18/2022 What Is The Fluoride Status Of Your Home? Fluoridated MIGRATION.0301 707126 Information not available 06/18/2022 When Did You Quit Smoking? 16+yearssincelast cigarette [email or web address] Information not available 08/18/2022 Are There Any Guns Present In Your Home? No MIGRATION.0301 975806 Information not available 06/18/2022 Do You Use Insect Repellent Routinely? No Information not available 08/18/2022 Where Do You Live? [facility] MIGRATION.0301 759812 Information not available 06/18/2022 Presence Of Domestic [...] Do You Have A Medical Power Of Fiber Analyst? No MIGRATION.0301 908593 Information not available 06/18/2022 What Was The Date Of Your Most Recent Tobacco Screening? 04/23/2023 [email or web address] Information not available 04/23/2023 Do You Have Any Pets? Yes MIGRATION.0301 779045 Information not available 06/18/2022 What Is Your Relationship Status? MIGRATION.0301 732878 Information not available 06/18/2022 Do You Use Your Seat Belt Or Car Seat Routinely? Yes Information not available 08/18/2022 Do You Have Smoke And Carbon Monoxide Detectors In Your Home? Yes MIGRATION.0301 438848 Information not available 06/18/2022 Are You Passively Exposed To Smoke? No MIGRATION.0301 413975 Information not available 06/18/2022 Are There Any Smokers In Your House? No MIGRATION.0301 476269 Information not available 06/18/2022 How Much Tobacco Do You Smoke? No MIGRATION.0301 637286 Information not available 06/18/2022 Do You Use Sunscreen Routinely? No Information not available 08/18/2022 Has Tobacco Cessation Counseling Been Provided? No Information not available 08/18/2022 Have You Recently Traveled Abroad? No MIGRATION.0301 925358 Information not available 06/18/2022 Do You Have Difficulty Walking Or Climbing Stairs? No MIGRATION.0301 606405 Information not available 06/18/2022 Do You Have Any Dietary Restrictions? No MIGRATION.0301 882321 Information not available 06/18/2022 Sex: Unknown Functional Status Question Answer Note LastModified by Organizat ion Details LastModified Time Do you or have you ever used smokeless tobacco? Never used smokeless tobacco MIGRATION.60631 75260 Information not available 06/18/2022 Are you currently employed? Yes [email or web address] Information not available 02/23/2023 Do you have transportation difficulties? No MIGRATION.68971 34378 Information not available 06/18/2022 Are you able to care for yourself independently? Yes MIGRATION.31940 65281 Information not available 06/18/2022 Do you have difficulty dressing, bathing, grooming, or toileting? No MIGRATION.69533 61727 Information not available 06/18/2022 Do you or have you ever used e-cigarettes or vape? Never used electronic cigarettes MIGRATION.15281 23336 Information not available 06/18/2022 What is your exercise level? Moderate Patient goes to gym 5 days a week. Information not available 08/18/2022 Do you use any illicit or recreational drugs? No [email or web address] Information not available 08/18/2022 Do you or have you ever used any other forms of tobacco or nicotine? No MIGRATION.85711 61348 Information not available 06/18/2022 What is your level of alcohol consumption? Occasional MIGRATION.47063 69486 Information not available 06/18/2022 Are you able to walk independently without assistance or assistive devices? YESWOREST MIGRATION.94781 35708 Information not available 06/18/2022 Do you have difficulty doing errands alone? 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 [id number] MIGRATION.03643158 26 Information not available 06/18/2022 Do you have difficulty concentrating, remembering or making decisions? No MIGRATION.06816224 26 Information not available 06/18/2022 Family History Relationship Description Onset Age of this Age Resolved Age Notes LastModified by Organization Details LastModified Time Mother Asthma MIGRATION.683 [id number] Not available 06/18/2022 02:30:43 Mother Malignant neoplasm of lung MIGRATION.972 1038729 Not available 06/18/2022 02:30:43 Father Hypertensive disorder MIGRATION.470 1388179 Not available 06/18/2022 02:30:43 Father Myocardial infarction MIGRATION.759 9426166 Not available 06/18/2022 02:30:43 Father Hypercholest erolemia MIGRATION.232 6975692 Not available 06/18/2022 02:30:44 Father Malignant neoplasm of kidney MIGRATION.702 0347187 Not available 06/18/2022 02:30:44 Father Malignant neoplasm of prostate MIGRATION.334 2962496 Not available 06/18/2022 02:30:44 Sister Malignant neoplasm of breast MIGRATION.988 8979838 Not available 06/18/2022 02:30:44 Sister Malignant neoplasm of colon MIGRATION.790 1989200 Not available 06/18/2022 02:30:44 Medical History Condition [...] ARTERY DISEASE (CAD) N ADDICTION CONCERNS N Impotence N ENDOMETRIOSIS N USE OF BLOOD THINNERS N SKIN [...] APNEA N CHICKENPOX N INFECTIOUS DISEASE N PROSTATE N HEART ARRHYTHMIA N INSOMNIA N HIGH CHOLESTEROL / HYPERLIPIDEMIA Y EYE PROBLEMS N HYPERTHYROIDISM N NEUROLOGICAL PROBLEMS N EDEMA N CHRONIC PAIN SYNDROME N HYPOTHYROIDISM N CONSTIPATION N CAROTID BLOCKAGE N BACK / NECK PROBLEMS N HAVE [...] N ALZHEIMER'S DISEASE N Brain Problems N DEMENTIA N HERPES N SEIZURES/EPILEPSY N HEADACHES/MIGRAINES N VASCULAR DISEASE N PACEMAKER N Blood Disorder N DIZZINESS Y HEART DISEASE/HEART PROBLEMS N KIDNEY DISEASE N MULTIPLE SCLEROSIS N CANCER: SPECIFY Y CARDIAC ARRHYTHMIA N ANESTHESIA COMPLICATIONS N ATRIAL FIBRILLATION N Gall [...] high-dose, trivalent, PF 8 completed Not Available [facility] 03/13/2023 04:44:20 Influenza, split virus, quadrivalent, preservative 7 completed Not Available [facility] 03/13/2023 04:44:20 COVID-19, mRNA, LNP-S, PF, 30 mcg/0.3 mL dose 1 completed Not Available [facility] 03/13/2023 04:44:20 COVID-19, mRNA, LNP-S, PF, 30 mcg/0.3 mL dose 1 completed Not Available [facility] 03/13/2023 04:44:20 COVID-19, mRNA, LNP-S, PF, 30 mcg/0.3 mL dose 1 completed Not Available [facility] 03/13/2023 04:44:20 Influenza, split virus, trivalent, preservative 0 completed Not Available [facility] 03/13/2023 04:44:20 Influenza, high-dose, quadrivalent, PF 2 completed Not Available [facility] 03/13/2023 04:44:20 Tdap 5 completed Not Available [facility] 03/13/2023 04:44:20 Influenza, high-dose, quadrivalent, PF 4 completed Dania Rosa MD [address] [place] [address], [facility] [address], [place], [address], [facility] 04/23/2023 16:58:29 Past Encounters Encounter ID Performer Location Encounter Start Date Encounter Closed Date Diagnosis/Indication Diagnosis SNOMED-CT Code Diagnosis ICD10 Code Diagnosis IMO Codes Diagnosis Note [id number] [facility] [place] [address] [facility] [address] [place] [id number] 07/03/2020 00:00:00 07/03/2020 11:12:46 [id number] Dania Rosa MD [facility] [place] [facility] [address] [facility], [facility] [address] [place] [address] 07/04/2020 00:00:00 07/15/2020 22:36:46 [id number] Negrito Alvarez MD [facility] [place] [address] [facility] [place] [id number] 10/02/2020 00:00:00 10/02/2020 10:02:58 [id number] Dania Rosa MD [facility] [place] [facility] [address] [facility] [address] [place] [address] 11/07/2020 00:00:00 11/10/2020 13:05:21 [id number] Negrito Alvarez MD [facility] [place] [address] [place] [id number] 04/30/2021 00:00:00 04/30/2021 11:47:37 [id number] Negrito Alvarez MD [facility] [place] [address] [facility] [address] [place] [id number] 05/28/2021 00:00:00 05/28/2021 15:53:43 [id number] Negrito Alvarez MD [facility] [place] [address] [facility] [address] [place] [id number] 06/25/2021 00:00:00 06/25/2021 14:13:57 [id number] Dania Rosa MD [facility] Internal Med [facility] [address] [address] 07/03/2021 00:00:00 07/03/2021 23:31:50 [id number] Negrito Alvarez MD [facility] [place] [address] [facility] [address] [place] [id number] 08/06/2021 00:00:00 08/06/2021 14:06:03 [id number] Negrito Alvarez MD [facility] [place] [address] [facility] [address] [place] [id number] 11/12/2021 00:00:00 11/12/2021 09:08:56 [id number] Dania Rosa MD [facility] Internal [place] [address] [address] 02/24/2022 00:00:00 02/24/2022 20:10:34 [id number] Dania Rosa MD [facility] Internal Med [facility] [address] [address] 08/18/2022 10:46:46 08/18/2022 11:49:37 Adult health examination 679622276 Z00.00 Screening for disorder 649282180 Z13.9 Essential hypertension 08419775 I10 Vitamin D deficiency 347 04695 E55.9 Chronic sinusitis 536758 00 J32.9 Gastroesop hageal reflux disease without esophagitis 025401464 K21.9 Anxiety 03021644 F41.9 [id number] Dania Rosa MD [facility] Internal Med [facility] [address] [address] 02/23/2023 14:47:26 02/23/2023 16:21:38 Gastroesophageal reflux disease without esophagitis 167749101 K21.9 Vitamin D deficiency 347 44778 E55.9 Anxiety 80665083 F41.9 Essential hypertension 84799225 I10 Pure hypercholesterolemia 355161683 E78.00 [id number] Dania Rosa MD [facility] [place] [address] [place] [address] 04/23/2023 14:34:01 04/23/2023 15:05:04 Vertigo 116215225 R42 Administra tion of influenza vaccine 61610840 Z23 Health Concerns Section Related Observation LastModified by Organization Detai ls LastModified Time None Recorded Concern Status LastModified by Organization Details LastModified Time None Recorded Advance Directives Directive Y: Patient declined to provi de copy for chart. Payers Insurance Date Sequence Insurance Name Policy Number Policy Jones Covered Member ID Jones Member ID Guarantor Name 04/23/2023 1 [place] F L Forister [id number] F Chacha Forister 05/22/2023 2 [employer] (MEDICARE SUPPLEMENT) F L Forister [id number] Chacha Forister 04/23/2023 [employer] - DMEPOS ASSIGNED (MEDICARE DME REGION B) F L Forister [id number] F Chacha Forister Notes Date Note [...] or heartburn Dania Rosa MD [address], [place], [address], [employer] 08/24/2022 12:33:44 3 text/html Anxiety stable on citalopramHypertension no headache or dizziness blood pressure 124/84Hyperlipidemia does try to follow low-fat diet she is taking her rosuvastatinOsteopenia pays attention to bone healthSome pain in left biceps areaGERD no nausea vomiting or heartburn Dania Rosa MD [address], [place], [address], [facility] 02/23/2023 20:40:06 4 text/html She has had several episodes of vertigo last summer and now over the last few days she is having and again no ringing in her ears no headache no blurred vision no unilateral numbness tingling weakness. No head trauma. Worse when she lies down and turns her head to the left. No palpitations or cardiac complaints Dania Rosa MD [address] [place] [address], [facility] [address], [place], [address], [place] - [facility] [employer] [facility] 04/23/2023 16:58:33 OBGyn Episode No OBEpisode recorded.
[2025-02-22 10:25] LABS: Alanine Aminotransferase 21 U/L (6-35); Albumin Level 4.6 g/dL (3.5-5.1); Alkaline Phosphatase 75 U/L (38-126); Anion Gap 7 mmol/L (4-12); Aspartate Amino Transferase 68 U/L (14-36); Bilirubin,Total 0.5 mg/dL (0.2-1.3); Blood Urea Nitrogen 21 mg/dL (7-17); Calcium 9.5 mg/dL (8.4-10.2); Carbon Dioxide 30 mmol/L (22-30); Chloride 102 mmol/L (98-107); Cholesterol 216 mg/dL (0-200); Estimated Glomerular Filt Rate > 60; Glucose 98 mg/dL (65-110); HDL Direct 74 mg/dL; Potassium 4.6 mmol/L (3.4-5.0); Sodium 139 mmol/L (137-145); Total Protein 7.6 g/dL (6.3-8.2); Triglycerides 90 mg/dL (<150)
== END 2025-02-22 09:20 | disposition home or self-care (01) ==
LOC: ANHLAB 09:23
PROVIDERS: PCP Internal Medicine; Visit Provider Internal Medicine
DX: R30.0 Dysuria (principal); I10 Essential (primary) hypertension
CPT/HCPCS: 36415; 80053; 80061; 81001; 85025; 87077; 87086; 87186

== ENCOUNTER 2025-04-08 12:56 | Emergency (ER) | payer MEDICARE, OTHER, SELFPAY ==
[2025-04-08 13:11] VITALS: BP 118/67; PULSE 83; RESP 18; TEMP 36.6; O2SAT 98
--- NOTE | 2025-04-08 13:20 | ED.URI ---
HPI - URI/Sore Throat General Chief Complaint: Upper Respiratory Infection Stated Complaint: Sore Throat/Cough patient presents to the [facility] with complaints of continued cough, chest congestion, nasal congestion, sinus pain, headache, fatigue, postnasal drainage that began about 2 months ago. Patient does report being on a round of steroids and was given an albuterol inhaler which did help somewhat with symptoms. But these returned. Known specific known sick contacts. Denies fever, chills, body aches, nausea, vomiting, diarrhea, sore throat, or dizziness. Related Data Home Medications ?Medication ?Instructions ?Recorded ?Confirmed ?Last Taken ?Type ascorbic acid (vitamin C) 500 mg 500 mg PO DAILY 07/20/23 08/06/23 08/02/23 History tablet calcium 600 mg capsule 600 mg PO DAILY 07/20/23 08/06/23 08/02/23 History cetirizine 10 mg tablet (Zyrtec) 10 mg PO DAILY 07/20/23 08/06/23 08/03/23 History cholecalciferol (vitamin D3) 50 50 mcg PO DAILY 07/20/23 08/06/23 08/03/23 History mcg (2,000 unit) tablet citalopram 20 mg tablet 20 mg PO DAILY 07/20/23 08/06/23 08/05/23 History lisinopril 10 mg tablet 10 mg PO DAILY 07/20/23 08/06/23 08/05/23 History montelukast 10 mg tablet 10 mg PO DAILY 07/20/23 08/06/23 08/05/23 History multivitamin with minerals-folic 1 tablet PO DAILY 07/20/23 08/06/23 08/02/23 History acid 0.4 mg tablet rosuvastatin 20 mg tablet 20 mg PO DAILY 07/20/23 08/06/23 08/05/23 History turmeric 400 mg capsule 400 mg PO DAILY 07/20/23 08/06/23 08/03/23 History omeprazole 20 mg capsule,delayed 20 mg PO DAILY 07/21/23 08/06/23 08/03/23 History release garlic 200 mg tablet 200 mg PO DAILY 04/08/25 Unknown History Allergies Allergy/AdvReac Type Severity Reaction Status Date / Time No Known Allergies Allergy Verified 04/08/25 13:07 Review of Systems Constitutional: Constitutional: Reports as per HPI, Denies chills, Reports fatigue, Denies fever(s) and Denies weakness Eyes: Eyes: Reports no additional eye complaints ENT: Reports as per HPI, Denies vertigo, Denies dizziness, Reports nasal congestion and Reports sore throat Cardiovascular: Cardiovascular: Reports no additional cardiovascular complaints Respiratory: Respiratory: Reports as per HPI, Reports chest congestion, Reports cough, Denies dyspnea and Reports wheezing Gastrointestinal: Gastrointestinal: Reports no additional gastrointestinal complaints Genitourinary: Genitourinary: Reports no additional female genitourinary complaints Musculoskeletal: Musculoskeletal: Reports as per HPI, Denies myalgias and Denies arthralgias Integumentary/Breasts: Skin/Breast: Reports as per HPI, Denies erythema, Denies rash and Denies skin ulcer Neurologic: Reports as per HPI, Denies vertigo, Denies dizziness, Reports headache(s), Denies numbness and Denies weakness Psychiatric: Psychiatric: Reports no additional psychiatric complaints Endocrine: Endocrine: Reports no additional endocrine complaints Hematologic/Lymphatic: Hematologic/Lymphatic: Reports no additional hematologic/lymphatic complaints Allergic/Immunologic: Allergic/Immunologic: Reports as per HPI Comments: sinuitis, seasonal allergies PMFSH Social History Social History Smoking status: Never smoker Alcohol intake: current Alcohol use details: rarely Substance use: never Substance use type: does not use Living arrangements: with family Spiritual care concerns: No Exam Const: General: healthy appearing and no acute distress Nutritional Appearance: well nourished Orientation/consciousness: patient oriented x3 Limitations: no limitations HENMT: Head: normal to inspection Ears: external ears normal and TM's normal bilaterally Face/Nose/Sinus: Normal external nose present, Normal nares present and Nasal discharge present Face and sinus: normal facial exam and sinus tenderness maxillary Mouth: Yes Normal oral and palatal mucosa present, Yes lip normal and Yes moist mucous membranes Throat: posterior oropharynx normal Resp: Effort & Inspection: normal respiratory effort Auscultation: no crackles, no rales, no rhonchi, no wheezes, breath sounds present and diminished lung sounds Cardio: Rate: regular rate Rhythm: regular rhythm Skin: General skin exam: normal color Rashes: no rashes Wounds: no wounds Neuro: General: patient oriented x3 Speech: normal speech Gait exam (Neuro): Normal gait present Extrem: General: normal to inspection and no clubbing, cyanosis or edema Psych: Mental Status: mental status grossly normal Affect: normal affect Attitude: cooperative Course Course Level of Care: Express Care Visit Vital Signs Vital signs: Vital Signs Temperature 97.9 F 04/08/25 13:11 Pulse Rate 83 04/08/25 13:11 Respiratory Rate 18 04/08/25 13:11 Blood Pressure 118/67 04/08/25 13:11 Pulse Oximetry 98 04/08/25 13:11 Oxygen Delivery Room Air 04/08/25 13:11 Temperature 97.9 F 04/08/25 13:11 Pulse Rate 83 04/08/25 13:11 Respiratory Rate 18 04/08/25 13:11 Blood Pressure 118/67 04/08/25 13:11 Pulse Oximetry 98 04/08/25 13:11 Oxygen Delivery Room Air 04/08/25 13:11 MDM MDM Narrative Medical decision making narrative: The patient was evaluated by myself in the express care. History is obtained from patient who is an independent historian and physical exam was performed. Available medical records were reviewed at this time. Exam findings show no acute concerns or changes; patient is non-toxic appearing and is in no distress. Patient is appropriate for outpatient treatment and follow-up. I have evaluated and discussed social determinants of health with the patient that could potentially impact subsequent diagnosis and treatment plans. Differential diagnosis and treatment plan were discussed with the patient. Patient agrees with discussion and after shared medical decision making agrees with plan of care. All questions were answered to the patient's satisfaction. Differential Diagnosis Differential Diagnosis: sinusitis, influenza ,bronchitis, upper respiratory infection Medical Records I have reviewed the following patient records and this information was taken into consideration when formulating the assessment and plan.: previous labs, previous ER visits, previous hospitalizations and previous clinic visits Discharge Plan Discharge Clinical Impression: Sinusitis Patient Disposition: Home Condition: Stable Instructions: Antibiotic Form, Sinusitis (ED) Additional Instructions: Take the antibiotics as directed for the entire course. Do not miss any doses. What you are taking antibiotics and is recommended to take a probiotic or have yogurt daily to return the good gut bacteria to your system. This can also help with acute diarrhea while taking antibiotics. It can take 24-48 hours for the antibiotics to start to relieve your symptoms continue to take these medications to help with various symptoms: Tylenol or Motrin for pain, headache, or fever Flonase/fluticasone or Nasacort/triamcinolone nasal spray- helps with congestion and nasal drainage. Sudafed/pseudoephedrine helps with sinus pain and congestion. Caution with high blood pressure. Use a humidifier or vaporizer at night. Drink plenty of water. 8-10 glasses per day. Mucinex/[place] directed and be sure to take with 8oz of water. Warm compresses over the forehead and cheeks to promote sinus drainage. Return to urgent care or go to the ER for new or worsening symptoms. Follow up with Primary provider if not improved after 1 week. Patient Language: Pakistani Prescriptions: New doxycycline monohydrate 100 mg capsule 100 mg PO BID Qty: 20 0RF methylprednisolone [Medrol (Louis)] 4 mg tablets,dose pack See Rx Instructions .ROUTE .COMPLEX Qty: 21 0RF Rx Instructions: for 6 days No Action garlic 200 mg tablet 200 mg PO DAILY cetirizine [Zyrtec] 10 mg Tablet 10 mg PO DAILY citalopram 20 mg Tablet 20 mg PO DAILY lisinopril 10 mg Tablet 10 mg PO DAILY montelukast 10 mg Tablet 10 mg PO DAILY rosuvastatin 20 mg Tablet 20 mg PO DAILY calcium 600 mg Capsule 600 mg PO DAILY ascorbic acid (vitamin C) 500 mg Tablet 500 mg PO DAILY multivit with min-folic acid [Adult One Daily Multivitamin] 0.4 mg Tablet 1 tablet PO DAILY cholecalciferol (vitamin D3) 50 mcg (2,000 unit) Tablet 50 mcg PO DAILY turmeric 400 mg Capsule 400 mg PO DAILY omeprazole [Prilosec] 20 mg Capsule,Delayed Release(Dr/Ec) 20 mg PO DAILY Follow-up/Referrals: Moe,MD Raghav [Primary Care Provider] Time of Disposition: 13:26
== END 2025-04-08 13:32 | disposition home or self-care (01) ==
PROVIDERS: Emergency Provider Nurse Practitioner Family; PCP Internal Medicine
DX: J32.9 Chronic sinusitis, unspecified (principal)
CPT/HCPCS: 99213; G0463